=== PATIENT | female | born 1970 | race Caucasian/White ===

== ENCOUNTER 2016-10-28 00:35 | Emergency (ER) | payer SELFPAY ==
[2016-10-28] MEDS ORDERED: HYDROmorphone 1 MG/ML SYRINGE IM STA (03:13)
[2016-10-28] MEDS ORDERED: HYDROmorphone 1 MG/ML SYRINGE ONE (03:14)
== END 2016-10-28 05:25 | disposition home or self-care (01) ==
DX: R10.33 Periumbilical pain (principal); R07.89 Other chest pain; R51 Headache; R73.9 Hyperglycemia, unspecified; K43.9 Ventral hernia without obstruction or gangrene; F17.200 Nicotine dependence, unspecified, uncomplicated
CPT/HCPCS: 36415; 80053; 83036; 83690; 85025; 96372; 99283; 99284; J1170

== ENCOUNTER 2016-11-04 18:12 | Emergency (ER) | payer SELFPAY ==
[2016-11-04] MEDS: SODIUM CHLORIDE 0.9% 2,000 ML IV ONE ×2 (19:05→19:59)
[2016-11-04] MEDS ORDERED: ACETAMINOPHEN 325 MG TABLET PO STA (19:42)
[2016-11-04] MEDS ORDERED: ACETAMINOPHEN 325 MG TABLET PO ONE (19:47)
== END 2016-11-04 21:02 | disposition home or self-care (01) ==
DX: R10.9 Unspecified abdominal pain (principal); R73.9 Hyperglycemia, unspecified; F17.200 Nicotine dependence, unspecified, uncomplicated; Z85.07 Personal history of malignant neoplasm of pancreas
CPT/HCPCS: 36415; 80053; 81001; 82803; 83690; 85025; 93010; 96374; 96375; 99283; 99284; A9270

== ENCOUNTER 2016-11-22 10:10 | Outpatient (CLI) | payer MEDICAID | END 2016-11-22 10:11 | disposition home or self-care (01) | DX: R73.01 Impaired fasting glucose (principal) ==

== ENCOUNTER 2016-12-15 13:46 | Inpatient (IN) | payer MEDICAID ==
[2016-12-15] MEDS ORDERED: SODIUM CHLORIDE 0.9% 1,000 ML IV ONE ×2 (14:37→17:05)
[2016-12-15] MEDS ORDERED: ONDANSETRON 4 MG/2 ML VIAL IVP STA ×2 (14:37→17:05)
[2016-12-15] MEDS ORDERED: HYDROmorphone 1 MG/ML SYRINGE IVP STA ×3 (14:37→18:31)
[2016-12-15] MEDS ORDERED: HYDROmorphone 1 MG/ML SYRINGE ONE ×3 (15:20→18:45)
[2016-12-15] MEDS ORDERED: ONDANSETRON 4 MG/2 ML VIAL ONE ×2 (15:21→17:11)
[2016-12-15] MEDS ORDERED: NICOTINE 7 MG PATCH TOP STA (18:31)
[2016-12-15] MEDS ORDERED: IOPAMIDOL-300 100 ML VIAL IVP ONE (19:47)
[2016-12-15] MEDS ORDERED: TEMAZEPAM 15 MG CAPSULE PO PRN (19:59)
[2016-12-15] MEDS ORDERED: PROCHLORPERAZINE 10 MG/2 ML VIAL IVP PRN (19:59)
[2016-12-15] MEDS ORDERED: oxyCODONE 5 MG TABLET PO PRN (20:04)
[2016-12-15] MEDS ORDERED: HYDROCORTISONE 20 MG PO SCH (21:00)
[2016-12-15] MEDS: HYDROmorphone 1 MG/ML SYRINGE IVP PRN (21:45)
[2016-12-15] MEDS: METHADONE 5 MG TABLET PO SCH (21:45)
[2016-12-15] MEDS: HYDROCORTISONE 10 MG TABLET PO SCH (21:45)
[2016-12-15] MEDS: FAMOTIDINE 20 MG/50 ML 50 ML IV SCH (21:49)
[2016-12-15] MEDS: SODIUM CHLORIDE FLUSH 0.9% 10 ML SYRINGE IVP SCH (22:16)
[2016-12-16] MEDS: SODIUM CHLORIDE 0.9% 1,000 ML IV SCH ×3 (00:29→13:46)
[2016-12-16] MEDS: HYDROmorphone 1 MG/ML SYRINGE IVP PRN (00:29)
[2016-12-16] MEDS: INSULIN REGULAR HUMAN 100 UNIT/1 ML 10 ML MDV SUBQ SCH ×4 (06:23→17:54)
[2016-12-16] MEDS: ACETAMINOPHEN 325 MG TABLET PO PRN ×2 (06:34→14:20)
[2016-12-16] MEDS: MORPHINE 2 MG/ML SYRINGE IVP PRN ×2 (06:34→10:05)
[2016-12-16] MEDS: SODIUM CHLORIDE FLUSH 0.9% 10 ML SYRINGE IVP SCH ×3 (06:40→21:19)
[2016-12-16] MEDS: HYDROCORTISONE 10 MG TABLET PO SCH ×3 (10:02→21:21)
[2016-12-16] MEDS: FAMOTIDINE 20 MG/50 ML 50 ML IV SCH ×2 (10:03→21:14)
[2016-12-16] MEDS: ENOXAPARIN 40 MG/0.4 ML SYRINGE SUBQ SCH (10:03)
[2016-12-16] MEDS: FLUDROCORTISONE 0.1 MG TABLET PO SCH (10:04)
[2016-12-16] MEDS: POLYETHYLENE GLYCOL 3350 17 GM PACKET PO SCH (10:04)
[2016-12-16] MEDS: METHADONE 5 MG TABLET PO SCH ×4 (10:04→21:19)
[2016-12-16] MEDS: HYDROmorphone 2 MG TABLET PO PRN (16:20)
[2016-12-16] MEDS: SODIUM CHLORIDE FLUSH 0.9% 10 ML SYRINGE IVP PRN (21:19)
[2016-12-16] MEDS ORDERED: GLUCAGON 1 MG/ML VIAL SUBQ PRN (22:28)
[2016-12-16] MEDS ORDERED: DEXTROSE 5% 1,000 ML IV PRN (22:28)
[2016-12-16] MEDS ORDERED: DEXTROSE 50% ABBOJECT 25 GM/50 ML SYRINGE IVP PRN (22:28)
[2016-12-16] MEDS ORDERED: DEXTROSE GEL 37.5 GM TUBE PO PRN (22:28)
[2016-12-17] MEDS: HYDROmorphone 2 MG TABLET PO PRN ×2 (00:15→06:36)
[2016-12-17] MEDS: HYDROCORTISONE 10 MG TABLET PO SCH ×2 (06:35→15:29)
[2016-12-17] MEDS: ONDANSETRON 4 MG/2 ML VIAL IVP PRN ×2 (06:36→16:44)
[2016-12-17] MEDS: SODIUM CHLORIDE FLUSH 0.9% 10 ML SYRINGE IVP SCH ×2 (06:36→16:44)
[2016-12-17] MEDS: INSULIN ASPART 300 UNIT/3 ML PEN SUBQ SCH ×2 (08:25→11:53)
[2016-12-17] MEDS: POLYETHYLENE GLYCOL 3350 17 GM PACKET PO SCH (08:29)
[2016-12-17] MEDS: METHADONE 5 MG TABLET PO SCH ×3 (08:30→16:43)
[2016-12-17] MEDS: FLUDROCORTISONE 0.1 MG TABLET PO SCH (08:32)
[2016-12-17] MEDS: FAMOTIDINE 20 MG/50 ML 50 ML IV SCH (08:33)
[2016-12-17] MEDS: ENOXAPARIN 40 MG/0.4 ML SYRINGE SUBQ SCH (08:33)
[2016-12-17] MEDS ORDERED: DOCUSATE SODIUM 250 MG CAPSULE PO SCH (09:00)
[2016-12-17] MEDS: SODIUM CHLORIDE FLUSH 0.9% 10 ML SYRINGE IVP PRN (16:44)
[2016-12-18] MEDS ORDERED: HYDROCORTISONE 10 MG TABLET PO SCH (22:00)
== END 2016-12-17 17:10 | disposition home or self-care (01) | DRG 439 ==
DX: K85.90 Acute pancreatitis without necrosis or infection, unspecified (principal); K86.3 Pseudocyst of pancreas; G90.50 Complex regional pain syndrome I, unspecified; Q85.8 Other phakomatoses, not elsewhere classified; E89.6 Postprocedural adrenocortical (-medullary) hypofunction; K21.9 Gastro-esophageal reflux disease without esophagitis; E11.9 Type 2 diabetes mellitus without complications; D50.9 Iron deficiency anemia, unspecified; I10 Essential (primary) hypertension; F32.9 Major depressive disorder, single episode, unspecified; F41.9 Anxiety disorder, unspecified; Z90.411 Acquired partial absence of pancreas; Z90.49 Acquired absence of other specified parts of digestive tract; G47.33 Obstructive sleep apnea (adult) (pediatric); F17.210 Nicotine dependence, cigarettes, uncomplicated; Z79.891 Long term (current) use of opiate analgesic; Z79.899 Other long term (current) drug therapy; Z85.07 Personal history of malignant neoplasm of pancreas

== ENCOUNTER 2016-12-26 18:03 | Outpatient (CLI) | payer MEDICAID | END 2016-12-26 18:04 | disposition critical access hospital (66) | DX: R11.2 Nausea with vomiting, unspecified (principal); R53.1 Weakness | CPT/HCPCS: A0425; A0427 ==

== ENCOUNTER 2016-12-26 18:31 | Emergency (ER) | payer MEDICAID ==
[2016-12-26] MEDS ORDERED: ONDANSETRON 4 MG/2 ML VIAL ONE (19:09)
[2016-12-26] MEDS ORDERED: SODIUM CHLORIDE 0.9% 2,000 ML IV ONE (19:09)
[2016-12-26] MEDS ORDERED: MORPHINE 2 MG/ML SYRINGE ONE (19:09)
[2016-12-26] MEDS: ONDANSETRON 4 MG/2 ML VIAL IVP STA (19:21)
[2016-12-26] MEDS: SODIUM CHLORIDE 0.9% 1,000 ML IV ONE ×2 (19:21→21:15)
[2016-12-26] MEDS: MORPHINE 2 MG/ML SYRINGE IVP STA (19:22)
[2016-12-26] MEDS: HYDROmorphone 1 MG/ML SYRINGE IVP STA (19:25)
[2016-12-26] MEDS ORDERED: MORPHINE 10 MG/ML VIAL ONE (20:00)
[2016-12-26] MEDS: MORPHINE 10 MG/ML VIAL IVP STA (20:02)
[2016-12-26] MEDS ORDERED: KETOROLAC 60 MG/2 ML VIAL ONE (21:36)
== END 2016-12-26 21:46 | disposition home or self-care (01) ==
DX: R10.84 Generalized abdominal pain (principal); R11.2 Nausea with vomiting, unspecified; E86.0 Dehydration; R73.9 Hyperglycemia, unspecified; R74.8 Abnormal levels of other serum enzymes; F17.200 Nicotine dependence, unspecified, uncomplicated

== ENCOUNTER 2017-06-08 13:25 | Outpatient (CLI) | payer MEDICAID ==
[2017-06-08 19:02] LABS: BASOPHILS % (AUTO) 0.3 %; EOSINOPHILS % (AUTO) 0.4 %; HCT - HEMATOCRIT 36.3 % (37.0-47.0); HGB - HEMOGLOBIN 11.2 g/dL (12.0-16.0); LYMPHOCYTES % (AUTO) 8.4 %; MEAN CORPUSCULAR HEMOGLOBIN 22.5 pg (27.0-31.0); MEAN CORPUSCULAR HGB CONC 30.7 g/dL (32.0-36.0); MEAN PLATELET VOLUME 7.9 fL (7.9-10.8); MONOCYTES # (AUTO) 0.5 10^3/uL (0.0-1.0); MONOCYTES % (AUTO) 4.5 %; NEUTROPHILS # (AUTO) 10.2 10^3/uL (1.5-6.6); NEUTROPHILS % (AUTO) 86.4 %; RED BLOOD COUNT 4.97 10^6/uL (4.20-5.40); RED CELL DISTRIBUTION WIDTH 16.3 % (12.0-15.0); UNCORRECTED WHITE BLOOD COUNT 11.8 x10^3/uL; WHITE BLOOD COUNT 11.8 x10^3/uL (4.8-10.8)
[2017-06-08 19:58] LABS: ALBUMIN/GLOBULIN RATIO 1.1 (1.0-2.2); BILIRUBIN,TOTAL 0.2 mg/dL (0.2-1.0); BUN - BLOOD UREA NITROGEN 22 mg/dL (6-20); CALCIUM 9.1 mg/dL (8.5-10.3); CARBON DIOXIDE - CO2 29 mmol/L (21-32); CHLORIDE 102 mmol/L (101-111); CHOL/HDL RATIO 2.3 (<4.4); CHOLESTEROL 160 mg/dL; CREATININE 0.7 mg/dL (0.4-1.0); GFR - MDRD 90 (>89); GLUCOSE 184 mg/dL (70-100); HDL CHOLESTEROL 71 mg/dL; LDL/HDL RATIO 0.9 (<4.4); POTASSIUM 4.2 mmol/L (3.5-5.0); SODIUM 138 mmol/L (135-145); TOTAL PROTEIN 6.8 g/dL (6.7-8.2); TRIGLYCERIDES 127 mg/dL; VLDL CHOLESTEROL 25 mg/dL
[2017-06-08 20:09] LABS: HEMOGLOBIN A1C 0.63 g/dL
[2017-06-09 12:24] LABS: FERRITIN 6.5 ng/mL (11.0-306.8); IRON 54 ug/dL (28-170); TOTAL IRON BINDING CAPACITY 543 ug/dL (250-450); TRANSFERRIN 388 mg/dL (192-382)
== END 2017-06-08 13:26 | disposition home or self-care (01) ==
LOC: LAB.N 13:25
PROVIDERS: ATTEND Physician Assistant
DX: R10.9 Unspecified abdominal pain (principal); E27.1 Primary adrenocortical insufficiency; D64.9 Anemia, unspecified
CPT/HCPCS: 36415; 80053; 80061; 82043; 82607; 82728; 83036; 83540; 84443; 84466; 85025

== ENCOUNTER 2017-07-13 07:51 | Emergency (ER) | payer MEDICAID ==
[2017-07-13 08:20] LABS: BILIRUBIN,URINE NEGATIVE (NEGATIVE)
[2017-07-13 08:27] LABS: HCG UR QUAL NEGATIVE; UA CHARGE (STRIP ONLY) YES; UR CULTURE IF IND NOT INDICATED
[2017-07-13 08:44] LABS: BASOPHILS # (AUTO) 0.1 10^3/uL (0.0-0.1); BASOPHILS % (AUTO) 0.6 %; EOSINOPHILS # (AUTO) 0.1 10^3/uL (0.0-0.7); EOSINOPHILS % (AUTO) 0.7 %; HCT - HEMATOCRIT 30.1 % (37.0-47.0); HGB - HEMOGLOBIN 9.7 g/dL (12.0-16.0); LYMPHOCYTES # (AUTO) 1.5 10^3/uL (1.5-3.5); LYMPHOCYTES % (AUTO) 14.1 %; MEAN CORPUSCULAR HEMOGLOBIN 23.8 pg (27.0-31.0); MEAN CORPUSCULAR HGB CONC 32.3 g/dL (32.0-36.0); MEAN CORPUSCULAR VOLUME 73.7 fL (81.0-99.0); MEAN PLATELET VOLUME 6.8 fL (7.9-10.8); MONOCYTES # (AUTO) 0.7 10^3/uL (0.0-1.0); MONOCYTES % (AUTO) 6.3 %; NEUTROPHILS # (AUTO) 8.2 10^3/uL (1.5-6.6); NEUTROPHILS % (AUTO) 78.3 %; RED BLOOD COUNT 4.08 10^6/uL (4.20-5.40); RED CELL DISTRIBUTION WIDTH 20.1 % (12.0-15.0); UNCORRECTED WHITE BLOOD COUNT 10.5 x10^3/uL; WHITE BLOOD COUNT 10.5 x10^3/uL (4.8-10.8)
--- NOTE | 2017-07-13 08:50 | ED Physician Documentation ---
PD HPI ABD PAIN - Stated complaint Stated Complaint: LEFT ABD PX - Chief complaint Chief Complaint: Abd Pain - History obtained from History obtained from: Patient - History of Present Illness Timing - onset: How many weeks ago (1) Timing - duration: Weeks (1) Timing - details: Gradual onset, Still present, Waxing and waning Pain level max: 10 Pain level now: 7 Quality: Cramping, Sharp, Pain Location: LUQ, LLQ Improved by: Laying still Worsened by: Eating, Moving, Position, Palpation Associated symptoms: Nausea. 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 She is usually been able to control this pain with her methadone which she takes 20 mg 4 times a day. She has not been able to control the pain this past week and she is become increasingly weak and requires stress doses of hydrocortisone to be able to stand. She has not had vomiting or diarrhea she denies any urinary symptoms she denies any fever or chills. She does have worsening of pain when she eats and she has worsening of pain with coughing or moving or palpating the area. She does have known pancreatic pseudocyst up to 5.2 cm in the left upper quadrant. She was last admitted for similar symptoms in December of this year. She has not followed up at the [facility] as she has lost her medical coverage. She is now gained medical coverage and has started going to the doctor again. Review of Systems Constitutional: reports: Fatigue. denies: Fever, Chills Eyes: denies: Decreased vision Ears: denies: Ear pain Nose: denies: Congestion Throat: denies: Sore throat Cardiac: denies: Chest pain / pressure, Palpitations Respiratory: denies: Dyspnea, Cough GI: reports: Abdominal Pain, Nausea. denies: Vomiting, Constipation, Diarrhea : denies: Dysuria, Frequency Skin: denies: Rash Musculoskeletal: denies: Neck pain, Back pain, Extremity pain PD PAST MEDICAL HISTORY - Past Medical History Cardiovascular: None Respiratory: None Neuro: None Endocrine/Autoimmune: Other GI: Pancreatitis : None HEENT: None, Other Psych: None Musculoskeletal: None Derm: None - Past Surgical History Past Surgical History: Yes General: Liver surgery Ortho: Spine surgery - Present Medications Home Medications: Ambulatory Orders Medication Instructions Recorded Confirmed Fludrocortisone Acetate 0.1 mg PO DAILY 06/02/13 07/13/17 Hydrocortisone [Cortef] 20 mg PO TID 06/02/13 07/13/17 Ascorbic Acid [Vitamin C] 250 mg PO DAILY 11/05/13 07/13/17 Ferrous Fumarate [Iron] 55 mg PO DAILY 11/05/13 07/13/17 Methadone 20 mg PO QID 11/05/13 07/13/17 Multivitamin [Multivitamins] 1 each PO DAILY 11/05/13 07/13/17 Oxycodone HCl 20 mg PO TID PRN 04/18/16 07/13/17 Acetaminophen [Tylenol] 650 mg PO Q4HR PRN #0 tablet 12/17/16 07/13/17 Aspirin 81 mg PO DAILY 07/13/17 07/13/17 Glimepiride 4 mg PO DAILY 07/13/17 07/13/17 Insulin Glargine [Lantus Solostar] 10 units SQ DAILY 07/13/17 07/13/17 Lisinopril 40 mg PO DAILY 07/13/17 07/13/17 Morphine Sulfate 15 mg PO BID PRN #30 tablet 07/13/17 Ondansetron Odt [Zofran] 4 mg TL Q6H PRN #10 tablet 07/13/17 - Allergies Allergies/Adverse Reactions: Allergies Allergy/AdvReac Type Severity Reaction Status Date / Time Sulfa (Sulfonamide Allergy Rash Verified 12/26/16 19:59 Antibiotics) NSAIDS (Non-Steroidal AdvReac abd pain Verified 12/26/16 19:59 Anti-Inflamma - Social History Does the pt smoke?: Yes Smoking Status: Current every day smoker Does the pt drink ETOH?: No Does the pt have substance abuse?: No - Immunizations Immunizations are current?: Yes - POLST Patient has POLST: No PD ED PE NORMAL - Vitals Vital signs reviewed: Yes (hypertensive) - General General: Alert and oriented X 3, No acute distress, Well developed/nourished - HEENT HEENT: Atraumatic, PERRL - Neck Neck: Supple, no meningeal sign - Cardiac Cardiac: RRR, No murmur - Respiratory Respiratory: No respiratory distress, Clear bilaterally - Abdomen Abdomen: Soft, Other (There is mild left upper quadrant and left lateral abdominal pain. She does not have flank tenderness. There is extensive scarring to the abdominal wall from prior surgical procedures. The scars are well healed thin appearing and without specific tenderness. ) - Back Back: No CVA TTP, No spinal TTP - Derm Derm: Normal color, Warm and dry, No rash - Extremities Extremities: No deformity, No edema - Neuro Neuro: No motor deficit, No sensory deficit - Psych Psych: Normal mood, Normal affect Results - Vitals Vitals: Vital Signs - 24 hr 07/13/17 07/13/17 07/13/17 08:00 09:13 09:45 Temperature 36.6 C 37.5 C Heart Rate 88 82 70 Respiratory 16 16 18 Rate Blood Pressure 168/112 H 179/95 H 168/85 H O2 Saturation 100 99 96 07/13/17 07/13/17 07/13/17 11:04 11:51 13:19 Temperature 36.2 C L 36.9 C 37.2 C Heart Rate 67 79 68 Respiratory 12 16 15 Rate Blood Pressure 153/88 H 160/75 H 160/88 H O2 Saturation 98 99 99 Oxygen O2 Source Room air - Labs Labs: Laboratory Tests 07/13/17 07/13/17 07/13/17 08:00 08:39 08:39 WBC 10.5 RBC 4.08 L Hgb 9.7 L Hct 30.1 L MCV 73.7 L MCH 23.8 L MCHC 32.3 RDW 20.1 H Plt Count 399 MPV 6.8 L Neut # 8.2 H Lymph # 1.5 [place] # 0.7 Eos # 0.1 Baso # 0.1 Absolute Nucleated RBC 0.00 Nucleated RBC % 0.0 Manual Slide Review Indicated WBC Morphology NORMAL APPEARANCE Platelet Estimate NORMAL (130-450,000) Platelet Morphology NORMAL APPEARANCE RBC Morph Micro Appear 1+ POLYCHROMASIA Sodium 137 Potassium 4.1 Chloride 99 L Carbon Dioxide 29 Anion Gap 9.0 BUN 15 Creatinine 0.8 Estimated GFR (MDRD) 77 L Glucose 221 H Calcium 8.6 Total Bilirubin 0.4 AST 27 ALT 19 Alkaline Phosphatase 51 Total Protein 6.5 L Albumin 3.6 Globulin 2.9 Albumin/Globulin Ratio 1.2 Lipase 169 H Urine Color YELLOW Urine Clarity CLEAR Urine pH 6.0 Ur Specific [place] 1.015 Urine Protein NEGATIVE Urine Glucose (UA) NEGATIVE Urine Ketones NEGATIVE Urine Occult Blood NEGATIVE Urine Nitrite NEGATIVE Urine Bilirubin NEGATIVE Urine Urobilinogen 0.2 (NORMAL) Ur Leukocyte Esterase NEGATIVE Ur Microscopic Review NOT INDICATED Urine Culture Comments NOT INDICATED Urine HCG, Qual NEGATIVE - Rads (name of study) CT abdomen pelvis with Radiology: Prelim report reviewed (Impression: 1. Increase in size of peripancreatic body cyst masses, uncertain etiology, possibly pseudocyst or cystic neoplasms. 2. Status post presumed modified Whipple and hepaticojejunostomy, suspected pancreaticojejunostomy and gastrojejunostomy. 3. Possible stent coursing through the hepaticojejunostomy 4. small cyst lesion in the pancreatic body is stable. 5. Stomach, small bowel and colon containing right abdominal incisional hernia with a wide neck without obstruction. 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 This is been particularly bad over the past week. Here in the emergency department she is administered morphine intravenously with improvement in her pain and she is quite comfortable with pain control. She is not dehydrated on interrogation of the inferior vena cava. 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 I was able to consult with Dr. Thomas at the [facility] he is the GI oncologist assigned to her case. The patient has not been in for follow-up since 2013 and she missed an appointment in December. That apparently was a day that she was admitted to the hospital here. He will make arrangements to be able to see the patient in their clinic either this Tuesday or next Tuesday. The patient appears comfortable following administration of extra pain medication and I suspect her pain control was lost, and that is how she ended up in the emergency department. She is discharged home with a trial of oral morphine for breakthrough pain. I have encouraged the patient to discontinue working and persue treatment. Departure - Departure Disposition: Home, Self Care Clinical Impression: Pancreatic pseudocyst Abdominal pain Qualifiers: Abdominal location: left upper quadrant Qualified Code(s): R10.12 - Left upper quadrant pain Condition: Stable Instructions: ED Pancreatitis Follow-Up: Luis Fernando Rojo PA-C [Primary Care Provider] - [facility] [Provider Group] Prescriptions: Morphine Sulfate 15 mg PO BID PRN #30 tablet PRN Reason: Pain Ondansetron Odt [Zofran] 4 mg TL Q6H PRN #10 tablet PRN Reason: Nausea / Vomiting Forms: Activity restrictions Discharge Date/Time: 07/13/17 14:40
[2017-07-13] MEDS ORDERED: MORPHINE 10 MG/ML VIAL IVP STA ×2 (08:55→12:20)
[2017-07-13] MEDS ORDERED: ONDANSETRON 4 MG/2 ML VIAL IVP STA (08:55)
[2017-07-13 08:57] LABS: ALBUMIN/GLOBULIN RATIO 1.2 (1.0-2.2); BILIRUBIN,TOTAL 0.4 mg/dL (0.2-1.0); CALCIUM 8.6 mg/dL (8.5-10.3); CREATININE 0.8 mg/dL (0.4-1.0); POTASSIUM 4.1 mmol/L (3.5-5.0); TOTAL PROTEIN 6.5 g/dL (6.7-8.2)
[2017-07-13 09:04] LABS: PLATELET ESTIMATE, MANUAL NORMAL (130-450,000) (NORMAL); PLATELET MORPHOLOGY NORMAL APPEARANCE (NORMAL); WBC MORPHOLOGY (MULTIPLE) NORMAL APPEARANCE (NORMAL)
[2017-07-13] MEDS ORDERED: IOPAMIDOL-300 100 ML VIAL ONE (09:05)
[2017-07-13] MEDS ORDERED: MORPHINE 10 MG/ML VIAL ONE ×2 (09:17→12:29)
[2017-07-13] MEDS ORDERED: ONDANSETRON 4 MG/2 ML VIAL ONE (09:17)
[2017-07-13] MEDS ORDERED: IOPAMIDOL-300 100 ML VIAL IVP ONE (09:32)
--- NOTE | 2017-07-13 10:30 | CT Preliminary Report ---
Exam: CT Abdomen/Pelvis W/ IMPRESSION: 1. Increase in size of peripancreatic body cystic masses, uncertain etiology, possibly pseudocysts or cystic neoplasms 2. Status post presumed modified Whipple with hepaticojejunostomy, suspected pancreaticojejunostomy a nd gastrojejunostomy 3. Possible stent coursing through the hepaticojejunostomy 4. Small cystic lesion in the pancreatic body is stable 5. Stomach, small bowel and colon containing right abdominal incisional hernia with a wide neck witho ut obstruction 6. 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
--- NOTE | 2017-07-13 10:33 | CT Report ---
EXAM: CT ABDOMEN AND PELVIS EXAM DATE: 07/13/2017 09:44 AM. CLINICAL HISTORY: L sided pain. COMPARISONS: CT abdomen and pelvis 12/15/2016. TECHNIQUE: Routine helical CT imaging was performed through the abdomen and pelvis. IV contrast: 100 mL Isovue-370. Enteric contrast: No. Reconstructions: Coronal and sagittal. In accordance with CT protocol optimization, one or more of the following dose reduction techniques w ere utilized for this exam: automated exposure control, adjustment of mA and/or KV based on patient s ize, or use of iterative reconstructive technique. FINDINGS: Lung Bases: Subsegmental atelectasis at the bases. Solid pulmonary nodule in the lateral basilar segm ent left lower lobe, series 3, axial image 13, measures 2 mm, unchanged. Liver: Atrophy of segment 4. Linear radiopaque structure extending through the hepatic hilum is most likely located in the bile ducts extending into the hepaticojejunostomy and into segment 8, unchanged . Gallbladder/Bile Ducts: Cholecystectomy. Hepaticojejunostomy. Spleen: Normal. Pancreas: Suboptimally evaluated. Suspect pancreaticojejunostomy. Mild atrophy. Small cystic lesion i n the pancreatic body, series 3, axial image 32, measures 9 mm, poorly visualized, unchanged. Peripan creatic cystic mass superior to the pancreatic body displaces the lesser curvature of the stomach, se sherlyn 3, axial image 27, measuring 6.0 cm, previously 4.4 cm. Peripancreatic cystic mass seen inferior to the pancreatic body, series 3, axial image 37, is bilobed measuring 9.1 cm, previously 5.4 cm. Pa ncreatic body and tail positioned between these cystic masses. Adrenal Glands: Adrenal glands not seen. Kidneys: Normal. No masses or hydronephrosis. Peritoneal Cavity/Bowel: Gastrojejunostomy. Large amount of gas and stool in the rectum. Large amount of gas and stool throughout the colon. Pelvic Organs: Tampon in the vagina. Possible leiomyoma in the right fundus. Vasculature: Enlarged portal vein. SMA is not well-seen and there appears to be collateral filling vi a the [place] which is enlarged. Bones: No significant abnormality. Other: Large incisional stomach, small bowel and colon containing right abdominal wide neck hernia wi thout obstruction. Multiple surgical clips in the upper abdomen abdominal and pelvic wall scarring. IMPRESSION: 1. Increase in size of peripancreatic body cystic masses, uncertain etiology, possibly pseudocysts or cystic neoplasms 2. Status post presumed modified Whipple with hepaticojejunostomy, suspected pancreaticojejunostomy a nd gastrojejunostomy 3. Possible stent coursing through the hepaticojejunostomy 4. Small cystic lesion in the pancreatic body is stable 5. Stomach, small bowel and colon containing right abdominal incisional hernia with a wide neck witho ut obstruction 6. 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
[2017-07-13 13:20] VITALS: BP 160/88
== END 2017-07-13 14:40 | disposition home or self-care (01) ==
LOC: ED 07:51
DX: K86.3 Pseudocyst of pancreas (principal); R10.12 Left upper quadrant pain; Q85.8 Other phakomatoses, not elsewhere classified; Z79.82 Long term (current) use of aspirin; Z79.4 Long term (current) use of insulin; F17.200 Nicotine dependence, unspecified, uncomplicated
CPT/HCPCS: 36415; 74177; 80053; 81003; 81025; 83690; 85025; 96374; 96375; 96376; 99284; Q9967; 81001; 87086

== ENCOUNTER 2018-06-08 02:01 | Outpatient (CLI) | payer MEDICAID | END 2018-06-08 02:02 | disposition critical access hospital (66) | LOC: EMS 02:01 | PROVIDERS: ATTEND Surgery | DX: R10.9 Unspecified abdominal pain (principal); R11.2 Nausea with vomiting, unspecified | CPT/HCPCS: A0425; A0427 ==

== ENCOUNTER 2018-06-08 02:28 | Observation (INO) | payer MEDICAID ==
[2018-06-08] MEDS ORDERED: HYDROmorphone 1 MG/ML CARPUJECT IVP STA (02:56)
[2018-06-08] MEDS ORDERED: PROMETHAZINE INJ 25 MG in SODIUM CHLORIDE 0.9% 50 ML IV STA (02:56)
[2018-06-08] MEDS ORDERED: SODIUM CHLORIDE 0.9% 1,000 ML IV ONE (02:56)
--- NOTE | 2018-06-08 02:57 | ED Physician Documentation ---
PD HPI ABD PAIN - Stated complaint Stated Complaint: N/V - Chief complaint Chief Complaint: Abd Pain - History obtained from History obtained from: Patient, EMS - History of Present Illness Timing - onset: Chronic Timing - details: Gradual onset, Still present Quality: Cramping, Aching, Sharp Location: All over / everywhere, Epigastric Associated symptoms: Fever, Nausea, Vomiting, Diarrhea Similar symptoms before: Work up / diagnostics, Treatment Recently seen: Not recently seen - Additional information Additional information: Patient is a 47 year old female with a history of metastatic Neuro endocrine tumors who is presenting to the emergency department for abdominal pain, nausea and vomiting. Patient states that her cancer is non operable and there are no medications for it. Patient states that she normally take zofran for nausea but it wasn't working. Patient also reports that her pain medication is not working. Patient has a history of multiple abdominal surgeries but also states that she has been having diarrhea. Review of Systems Constitutional: reports: Chills. 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 : None HEENT: None, Other Psych: None Musculoskeletal: None Derm: None - Past Surgical History Past Surgical History: Yes General: Liver surgery Ortho: Spine surgery - Present Medications Home Medications: Ambulatory Orders Medication Instructions Recorded Confirmed Fludrocortisone Acetate 0.1 mg PO DAILY 06/02/13 07/13/17 Hydrocortisone [Cortef] 20 mg PO TID 06/02/13 07/13/17 Ascorbic Acid [Vitamin C] 250 mg PO DAILY 11/05/13 07/13/17 Ferrous Fumarate [Iron] 55 mg PO DAILY 11/05/13 07/13/17 Methadone 20 mg PO QID 11/05/13 07/13/17 Multivitamin [Multivitamins] 1 each PO DAILY 11/05/13 07/13/17 Oxycodone HCl 20 mg PO TID PRN 04/18/16 07/13/17 Acetaminophen [Tylenol] 650 mg PO Q4HR PRN #0 tablet 03/03/17 09/27/17 Aspirin 81 mg PO DAILY 07/13/17 07/13/17 Glimepiride 4 mg PO DAILY 07/13/17 07/13/17 Insulin Glargine [Lantus Solostar] 10 units SQ DAILY 07/13/17 07/13/17 Lisinopril 40 mg PO DAILY 07/13/17 07/13/17 Morphine Sulfate 15 mg PO BID PRN #30 tablet 07/13/17 Ondansetron Odt [Zofran] 4 mg TL Q6H PRN #10 tablet 07/13/17 - Allergies Allergies/Adverse Reactions: Allergies Allergy/AdvReac Type Severity Reaction Status Date / Time Sulfa (Sulfonamide Allergy Rash Verified 06/08/18 02:38 Antibiotics) NSAIDS (Non-Steroidal AdvReac abd pain Verified 06/08/18 02:38 Anti-Inflamma - Social History Does the pt smoke?: Yes Smoking Status: Current every day smoker Does the pt drink ETOH?: No Does the pt have substance abuse?: No - Immunizations Immunizations are current?: Yes - POLST Patient has POLST: No PD ED PE NORMAL - General General: Alert and oriented X 3 - HEENT HEENT: Atraumatic - Cardiac Cardiac: RRR - Respiratory Respiratory: No respiratory distress - Derm Derm: Normal color - Extremities Extremities: No deformity - Neuro Neuro: Alert and oriented X 3, No motor deficit, Normal speech Eye Opening: Spontaneous PD ED PE EXPANDED - General General: Alert, In Pain - HEENT HEENT: Dry mucous membranes - Abdomen Abdomen: Tender to palpation, Guarding, Generalized/diffuse. No: Rebound Results - Vitals Vitals: Vital Signs - 24 hr 06/08/18 02:33 Temperature 36.6 C Heart Rate 62 Respiratory 12 Rate Blood Pressure 188/97 H O2 Saturation 98 Oxygen O2 Source Room air - Labs Labs: Laboratory Tests 06/08/18 06/08/18 06/08/18 03:10 03:10 03:10 WBC 11.7 H RBC 5.66 H Hgb 14.5 Hct 44.3 MCV 78.3 L MCH 25.7 L MCHC 32.8 RDW 16.7 H Plt Count 387 MPV 7.4 L Neut # (Auto) 9.3 H Lymph # (Auto) 1.4 L [place] # (Auto) 0.8 Eos # (Auto) 0.0 Baso # (Auto) 0.1 Absolute Nucleated RBC 0.02 Nucleated RBC % 0.2 Sodium 138 Potassium 2.9 L Chloride 99 L Carbon Dioxide 29 Anion Gap 10.0 BUN 10 Creatinine 0.5 Estimated GFR (MDRD) 132 Glucose 118 H Calcium 8.7 Magnesium 1.9 Total Bilirubin 0.9 AST 16 ALT 17 Alkaline Phosphatase 76 Total Protein 6.8 Albumin 3.8 Globulin 3.0 Albumin/Globulin Ratio 1.3 Lipase 61 H - Rads (name of study) ct abd pelvis Radiology: Final report received, See rad report (multiple findings. please see rad report) PD MEDICAL DECISION MAKING - ED course Complexity details: reviewed old records, reviewed results, re-evaluated patient , considered differential, d/w patient ED course: Patient was seen and examined at bedside. Iv access was gained and labs were drawn. Patient was treated with ns bolus, morphine and phenagren. Imaging was ordered. Patient's vomiting had originally stopped. when patient returned from imaging results were reviewed. Patient was found to have worsening disease. Patient stated that she still did not want any type of surgery and just wanted her pain controlled as well as the nausea. patient's potassium was replaced. Case was discussed with the hospitalist who agreed to observation. - Sepsis Event Vital Signs: Vital Signs - 24 hr 06/08/18 02:33 Temperature 36.6 C Heart Rate 62 Respiratory 12 Rate Blood Pressure 188/97 H O2 Saturation 98 Oxygen O2 Source Room air Departure - Departure Disposition: ED Place in Observation Clinical Impression: Vomiting, Dehydration, Pancreatic pseudocyst, Hypokalemia
[2018-06-08] MEDS ORDERED: IOPAMIDOL-300 100 ML VIAL ONE (03:13)
[2018-06-08] MEDS ORDERED: MORPHINE 10 MG/ML VIAL IVP STA (03:21)
[2018-06-08 03:27] LABS: BASOPHILS # (AUTO) 0.1 10^3/uL (0.0-0.1); BASOPHILS % (AUTO) 0.6 %; EOSINOPHILS % (AUTO) 0.4 %; HGB - HEMOGLOBIN 14.5 g/dL (12.0-16.0); LYMPHOCYTES # (AUTO) 1.4 10^3/uL (1.5-3.5); MEAN CORPUSCULAR HEMOGLOBIN 25.7 pg (27.0-31.0); MEAN CORPUSCULAR HGB CONC 32.8 g/dL (32.0-36.0); MEAN CORPUSCULAR VOLUME 78.3 fL (81.0-99.0); MEAN PLATELET VOLUME 7.4 fL (7.9-10.8); MONOCYTES # (AUTO) 0.8 10^3/uL (0.0-1.0); MONOCYTES % (AUTO) 7.2 %; NEUTROPHILS # (AUTO) 9.3 10^3/uL (1.5-6.6); NEUTROPHILS % (AUTO) 79.8 %; PLT - PLATELET COUNT 387 10^3/uL (130-450); RED BLOOD COUNT 5.66 10^6/uL (4.20-5.40); RED CELL DISTRIBUTION WIDTH 16.7 % (12.0-15.0); WHITE BLOOD COUNT 11.7 x10^3/uL (4.8-10.8)
[2018-06-08 03:41] LABS: ALBUMIN 3.8 g/dL (3.2-5.5); ALBUMIN/GLOBULIN RATIO 1.3 (1.0-2.2); BILIRUBIN,TOTAL 0.9 mg/dL (0.2-1.0); CALCIUM 8.7 mg/dL (8.5-10.3); CREATININE 0.5 mg/dL (0.4-1.0); TOTAL PROTEIN 6.8 g/dL (6.7-8.2)
[2018-06-08] MEDS ORDERED: POTASSIUM CHLOR 10 MEQ/100 ML 10 MEQ/100 ML BAG IV ONE (04:01)
[2018-06-08] MEDS ORDERED: IOPAMIDOL-300 100 ML VIAL IVP ONE (04:18)
--- NOTE | 2018-06-08 04:47 | CT Report ---
Procedure Date: 06/08/2018 Accession Number: [id number] / [id number] Procedure: CT - Abdomen/Pelvis W/ CPT Code: FULL RESULT: EXAM: CT ABDOMEN AND PELVIS EXAM DATE: 06/08/2018 04:20 AM. CLINICAL HISTORY: Abdominal pain, vomiting, history of cancer and multiple procedures. COMPARISONS: ABDOMEN/PELVIS W/ 07/13/2017 9:25 AM, ABDOMEN/PELVIS W/ 12/15/2016, ABDOMEN/PELVIS W/WO 09/15/2013 11:44 AM. TECHNIQUE: Routine helical CT imaging was performed through the abdomen and pelvis. IV contrast: Yes. Enteric contrast: No. Reconstructions: Coronal and sagittal. In accordance with CT protocol optimization, one or more of the following dose reduction techniques were utilized for this exam: automated exposure control, adjustment of mA and/or KV based on patient size, or use of iterative reconstructive technique. FINDINGS: Lung Bases: Unremarkable. Liver: Mildly fatty. No suspicious masses. Pancreaticobiliary System: Post-partial pancreatectomy. Suspect previous choledochojejunal and pancreaticojejunal anastomoses. Minimal stranding adjacent to the pancreatic remnant. The pancreas appears diffusely nodular with hyperenhancing nodules measuring up to 29 x 24 mm in cross-section on image 28 of the axial sequence in the region of the proximal pancreatic body. Several additional smaller nodules in the pancreatic body and tail. Chronic benign-appearing left abdominal cysts have slightly enlarged compared to the prior study, likely pseudocysts. These measure up to approximately 10 x 8 x 8 cm currently, 9 x 7 x 7 cm previously. Additional smaller pseudocysts adjacent to the gastric body currently measures 7 x 5 x 5 cm, previously 6 x 5 x 5 cm. No intrahepatic biliary ductal dilatation seen. Spleen: Unremarkable. Adrenal Glands: Unremarkable. Kidneys: Unremarkable. No suspicious masses or hydronephrosis. Peritoneal Cavity/Bowel: No bowel obstruction or inflammatory process seen. Moderate stool burden. Large wide mouth anterior abdominal hernia containing numerous segments of large and small bowel appear stable and without complication. Pelvic Organs: Numerous uterine fibroids, including a intracavitary mass, measuring grossly 60 x 28 x 25 mm which may be an endometrial polyp or fibroid. No suspicious adnexal masses. Urinary bladder appears unremarkable. Vasculature: No definite acute abnormality with stable appearance. 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 No portal venous thrombosis seen. 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 Bones: No significant abnormality. Other: Intrathecal pump noted. IMPRESSION: 1. Questionable mild acute pancreatitis. Numerous hyperenhancing nodules within the pancreatic parenchyma measuring up to 28 mm. Unclear if this is neoplastic or inflammatory in nature. Consider endoscopic ultrasound and biopsy. 2. Interval enlargement of the left abdominal probable pseudocysts measuring up to 10 cm. Additional 7 mm pseudocyst abuts the gastric body and may be amenable to transgastric drainage if clinically indicated. 3. Moderate stool burden. 4. Fibroid uterus. Additional 6 cm intracavitary mass could be a fibroid or endometrial polyp. 5. Previous extensive upper abdominal surgeries, including whipple procedure. 6. Large anterior abdominal hernia without apparent complication. 7. Fatty liver. [facility]
[2018-06-08] MEDS ORDERED: PROCHLORPERAZINE 10 MG/2 ML VIAL IVP PRN (05:40)
[2018-06-08] MEDS ORDERED: TEMAZEPAM 15 MG CAPSULE PO PRN (05:40)
[2018-06-08] MEDS ORDERED: ACETAMINOPHEN 325 MG TABLET PO PRN (05:40)
[2018-06-08] MEDS ORDERED: SODIUM CHLORIDE FLUSH 0.9% 10 ML SYRINGE IVP PRN (05:40)
[2018-06-08] MEDS ORDERED: ONDANSETRON 4 MG/2 ML VIAL IVP PRN (05:40)
[2018-06-08] MEDS ORDERED: POTASSIUM CHLOR 10 MEQ/100 ML 10 MEQ/100 ML BAG IV SCH (05:43)
[2018-06-08] MEDS ORDERED: POTASSIUM CHLORIDE 20 MEQ TABLET PO STA (05:43)
[2018-06-08] MEDS ORDERED: HYDROmorphone PCA 20MG/100ML IV PRN (05:44)
[2018-06-08] MEDS: INSULIN ASPART 300 UNIT/3 ML PEN SUBQ SCH ×4 (07:59→21:26)
[2018-06-08] MEDS ORDERED: POTASSIUM CHLORIDE 20 MEQ TABLET PO ONE (08:00)
[2018-06-08] MEDS ORDERED: hydrALAZINE INJ 20 MG/ML VIAL IVP PRN (08:15)
[2018-06-08] MEDS: POTASSIUM CHLOR 10 MEQ/100 ML 10 MEQ/100 ML BAG IV SCH ×4 (08:30→13:41)
[2018-06-08] MEDS: MAGNESIUM HYDROXIDE 2,400 MG/30 ML UDC PO SCH (08:39)
[2018-06-08] MEDS: LISINOPRIL 20 MG TABLET PO SCH (08:39)
[2018-06-08] MEDS ORDERED: SODIUM CHLORIDE 0.9% 1,000 ML IV SCH (09:00)
[2018-06-08] MEDS: POLYETHYLENE GLYCOL 3350 17 GM PACKET PO SCH (10:18)
[2018-06-08] MEDS: SODIUM CHLORIDE FLUSH 0.9% 10 ML SYRINGE IVP SCH ×2 (10:18→16:54)
--- NOTE | 2018-06-08 10:27 | HISTORY & PHYSICAL EXAMINATION ---
DATE OF SERVICE: 06/08/2018 Physician: Sanjuana Rocha MD CHIEF COMPLAINT: Intractable abdominal pain. 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 on June 07. When I interviewed this patient, she kept repeating that her pain was unbearable and she was a poor historian. Other than this, it was difficult to extract much information from her. In any case, as much as I could gather, she also had nausea and vomited a couple of times. She denied fever. She had regular bowel movements, did not notice any change. The abdominal pain was located periumbilically and radiated to the back. It was sharp, constant and unbearable. Patient has chronic pain. She is opiate dependent. She has pancreatic neuroendocrine tumors and tumors at other site as well and she has episodes when her pain gets out of control. She told me that this pain she experiences tonight is not different than what she had in the past. Further interviewing this patient, also per the ER physician's report, the patient gets her outpatient care at the [facility]. She is not a candidate for surgeries, invasive intervention or chemotherapy. The patient confirmed that she would not wish to transfer to the [facility] and she only seeks pain control in our hospital. She understands that we cannot provide specialty consultation and she is not interested in such. She reports that she receives octreotide injections once a month, but no other therapy currently. Upon presentation to the ER, patient was hemodynamically stable and afebrile. Her blood pressure was elevated at 188/97, and this was in the setting of pain. Laboratory showed potassium of 2.9, blood glucose 118, otherwise unremarkable. White blood cell count was slightly elevated at 11.7. Lipase was 61. Liver function tests were unremarkable. CT scan of the abdomen showed multiple chronic abnormalities with some slight changes, but nothing acute to cause the patient's unbearable pain. In particular, there was mild acute pancreatitis, numerous hyperenhancing nodules within the pancreas. There was interval enlargement of left abdominal probable pseudocyst and other pseudocysts in the gastric body as well. There was moderate stool burden, fibroid uterus, signs of previous extensive upper abdominal surgeries and there was a large anterior abdominal hernia without complication. Fatty liver was also described. Of note, the radiologist mentioned that transgastric drainage of pseudocysts could be considered; however , when procedures were discussed with patient, she was not interested to pursue. PAST MEDICAL HISTORY 1. Insulin-dependent diabetes. 2. 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 Patient underwent Whipple procedure and bilateral adrenalectomies as well. She is not a candidate for chemotherapy or additional surgeries. She receives octreotide injection once a month. 3. Adrenal insufficiency status post adrenalectomies. 4. Reflex sympathetic dystrophy/chronic pain/opiate dependence. 5. Anxiety/depression. 6. Hypertension. 7. Obstructive sleep apnea, history of CPAP use. 8. Gastroesophageal reflux. 9. Status post cholecystectomy. 10. Status post appendectomy. OUTPATIENT MEDICATIONS: Not yet reconciled. REVIEW OF SYSTEMS: Please see pertinent positives listed above at history of present illness. Patient did not report additional complaints on the 12-point review. CODE STATUS: FULL CODE. SOCIAL HISTORY: Patient smokes cigarettes. FAMILY HISTORY: Patient is adopted. PHYSICAL EXAMINATION VITAL SIGNS: Temperature 36.6 Celsius, heart rate in the 60s, blood pressure 180/97, respiratory rate 12, oxygen saturation 98% on room air. GENERAL: Patient is a well-developed, chronically ill-appearing female who constantly complains of pain. ABDOMEN: Not much bowel tone. Diffuse tenderness with voluntary guarding. No rebound. Large midline abdominal wall hernia without sign of incarceration. CARDIOVASCULAR: S1, S2. Regular. No pathologic murmur. RESPIRATORY: No increased work of breathing. No wheezes. No crackles. LYMPHATIC: No lymphedema. MUSCULOSKELETAL: Unremarkable. NEUROLOGIC: Alert, oriented, nonfocal. PSYCHIATRIC: Anxious, but cooperative. SKIN: No rash. No skin nodules. ASSESSMENT AND PLAN/ACTIVE ISSUES/DIAGNOSES 1. Hypokalemia with potassium of 2.9. 2. Uncontrolled pain with complicated medical background and with history of opiate dependence. CT scan did not show acute abnormality to address, except worsening of the patient's chronic condition. Patient would not want to seek drainage of pseudocyst or any intervention at this time. She is clearly interested in pain control. She told that to the ER physician and she confirmed it when I interviewed her. 3. Insulin-dependent diabetes with good blood glucose control. 4. Uncontrolled hypertension with history of hypertension plus in the setting of uncontrolled pain /could be situational. 5. Adrenal insufficiency. We will need to continue replacement steroids. PLAN AND ORDERS 1. Patient is getting admitted under observation. For pain control, I will start CHROME PLATER pump. I do not see much other way to get patient's pain under control. 2. Awaiting medication reconciliation and outpatient medications should be continued unchanged. 3. Will continue steroids, including hydrocortisone and fludrocortisone when medications are reconciled. For now, the patient appears with good blood pressure and stable situation. There is no sign of adrenal crisis. 4. Hypokalemia. We will replace potassium. Replacement already started in the ER. 5. Regarding diabetes, we will start insulin sliding scale. 6. I expect patient's symptoms to get under control within 48 hours. If further complication develops, then transfer to [facility] should be considered. Notably, that was offered to the patient, but she declined. 7. Deep venous thrombosis prophylaxis with Venodyne boots. If remains hospitalized for more than 24 hours, pharmacologic prophylaxis could be considered. For now, we will encourage patient to ambulate as she tolerates. 8. Clear liquid diet. We will advance as tolerated. 9. FULL CODE. Time spent with the care of this patient was 60 minutes. ATTESTATION: I certify that the reasonable expectation for this patient is to get her symptoms under control and discharge within 48 hours. Therefore, she is getting admitted under observation. TD: 06/08/2018 06:30 NORRIS
[2018-06-08] MEDS: amLODIPine 5 MG TABLET PO SCH (11:46)
[2018-06-08] MEDS: ASCORBIC ACID CHEW 500 MG TABLET PO SCH (11:46)
[2018-06-08] MEDS: ASPIRIN CHEW 81 MG TABLET PO SCH (11:46)
[2018-06-08] MEDS: GLIMEPIRIDE 2 MG TABLET PO SCH (11:46)
--- NOTE | 2018-06-08 13:34 | PROVIDER PROGRESS NOTE ---
Subjective - Prog Note Date Prog Note Date: 06/08/18 - Subjective Pt reports feeling: Improved Subjective: pt state her pain is good controlled after PRIMER CHARGER starts. Pt denies headache, fever , cough, chill, CP, SOB. Current Medications - Current Medications Current Medications: Active Medications Acetaminophen (Tylenol) 650 mg PO Q4HR PRN PRN Reason: Pain 1 to 4 Amlodipine Besylate (Norvasc) 10 mg PO DAILY [facility] Last Admin: 06/08/18 11:46 Dose: 10 mg Ascorbic Acid (Vitamin C) 250 mg PO DAILY [facility] Last Admin: 06/08/18 11:46 Dose: 250 mg Aspirin ([facility] Timothy Aspirin) 81 mg PO DAILY [facility] Last Admin: 06/08/18 11:46 Dose: 81 mg Glimepiride (Amaryl) 4 mg PO DAILYWM [facility] Last Admin: 06/08/18 11:46 Dose: 4 mg Hydralazine HCl (Apresoline Inj) 10 mg IVP Q6H PRN PRN Reason: Hypertensive Emergency Hydromorphone HCl (Dilaudid Honing Machine Operator Semiautomatic 20mg/100ml) 0 mg IV PRN PRN; Protocol PRN Reason: Abdominal Pain Last Admin: 06/08/18 10:01 Dose: 20 mg Sodium Chloride (Normal Saline 0.9%) 1,000 mls @ 83.333 mls/hr IV .Q12H [facility] Stop: 06/09/18 08:59 Last Admin: 06/08/18 08:30 Dose: 83.333 mls/hr Insulin Aspart (Novolog) 1 - 5 unit SUBQ 0800,1200,1700,2100 [facility] PRN Reason: Protocol Last Admin: 06/08/18 12:12 Dose: Not Given Lisinopril (Zestril) 40 mg PO DAILY [facility] Last Admin: 06/08/18 08:39 Dose: 40 mg Magnesium Hydroxide (Milk Of Magnesia) 2,400 mg PO DAILY [facility] Last Admin: 06/08/18 08:39 Dose: 2,400 mg Non-Formulary Medication (Hydrocortisone [Cortef]) 20 mg PO BID [facility] Ondansetron HCl (Zofran Inj) 4 mg IVP Q6HR PRN PRN Reason: Nausea / Vomiting Last Admin: 06/08/18 07:03 Dose: 4 mg Polyethylene Glycol (Miralax) 17 gm PO DAILY [facility] Last Admin: 06/08/18 10:18 Dose: Not Given Prochlorperazine Edisylate (Compazine Inj) 10 mg IVP Q6HR PRN PRN Reason: Nausea / Vomiting Last Admin: 06/08/18 10:24 Dose: 10 mg Sodium Chloride (Normal Saline Flush 0.9%) 10 ml IVP PRN PRN PRN Reason: NEEDED PER PROVIDER ORDERS Last Admin: 06/08/18 07:03 Dose: 10 ml Sodium Chloride (Normal Saline Flush 0.9%) 10 ml IVP 0100,0900,1700 [facility] Last Admin: 06/08/18 10:18 Dose: Not Given Temazepam (Restoril) 15 mg PO QPM PRN PRN Reason: Insomnia Fludrocortisone Acetate 0.1 mg PO DAILY 06/02/13 Hydrocortisone [Cortef] 20 mg PO BID 06/02/13 Ascorbic Acid [Vitamin C] 250 mg PO DAILY 11/05/13 Ferrous Fumarate [Iron] 55 mg PO DAILY 11/05/13 Methadone 20 mg PO QID 11/05/13 Multivitamin [Multivitamins] 1 each PO DAILY 11/05/13 Oxycodone HCl 20 mg PO TID PRN 04/18/16 Aspirin 81 mg PO DAILY 07/13/17 Glimepiride 4 mg PO DAILY 07/13/17 Insulin Glargine [Lantus Solostar] 10 units SQ DAILY 07/13/17 Lisinopril 40 mg PO DAILY 07/13/17 Amlodipine Besylate [Amlodipine Besylate] 10 mg PO DAILY 06/08/18 Objective - Vital Signs/Intake & Output Reviewed Vital Signs: Yes Vital Signs: Vital Signs x48h Temp Pulse Pulse Resp BP BP Pulse Ox 06/08/18 10:00 14 06/08/18 08:00 36.9 C 66 17 178/87 H 100 06/08/18 06:56 36.5 C 66 18 202/110 H 100 06/08/18 06:37 36.6 C 90 20 189/101 H 100 Intake & Output: Intake & Output 06/05/18 06/06/18 06/07/18 06/08/18 23:59 23:59 23:59 23:59 Intake Total 300 Output Total 600 Balance -300 - Objective General Appearance: positive: No acute distress, Alert. negative: Lethargic Eyes Bilateral: positive: Normal inspection, PERRL, No lid inflammation, Conjunctivae nml ENT: positive: ENT inspection nml, Pharynx nml, No signs of dehydration. negative: Purulent nasal drainage, Pharyngeal erythema, Oral lesions Neck: positive: Nml inspection, Thyroid nml, No JVD, Trachea midline. negative : Thyromegaly, Lymphadenopathy (R), Lymphadenopathy (L), Stiff neck, Swelling/ bruising, Tracheal deviation Respiratory: positive: Chest non-tender, No respiratory distress, Breath sounds nml. negative: Wheezes, Rales, Rhonchi Cardiovascular: positive: Regular rate & rhythm, No murmur, No gallop. negative : Irregularly irregular, Extrasystoles, Tachycardia, Bradycardia, JVD present, Systolic murmur, Diastolic murmur Peripheral Pulses: 2+ Radial (R), 2+ Radial (L), 2+ Dorsalis pedis (R), 2+ Dorsalis pedis (L) Abdomen: positive: No organomegaly, Nml bowel sounds, No distention, Tenderness. negative: Guarding, Rebound Back: positive: Nml inspection. negative: CVA tenderness (R), CVA tenderness (L ) Skin: positive: Color nml, No rash, Warm, Dry. negative: Cyanosis, Diaphoresis , Pallor Extremities: positive: Non-tender, Full ROM, Nml appearance. negative: Calf tenderness, Joint swelling, Michael's sign/cords Neurologic/Psychiatric: positive: Oriented x3, Motor nml, Sensation nml, Mood/ affect nml. negative: Weakness, Sensory loss, Facial droop, Slurred/abnml speech, Depressed mood/affect - Lab Results Fish Bones: 06/08/18 03:10 06/08/18 03:10 Other Labs: Lab Results x24hrs 06/08/18 06/08/18 Range/Units 11:29 07:56 POC Whole Bld Glucose 88 102 H (70 - 100) mg/dL ABX Reporting Has patient been on IV antibiotics over the past 48 hours?: No Assessment/Plan - Problem List (1) Abdominal pain Impression: pt has hx of Von hippel-Lindau syndrome, diffused tumors pattern in abdomen. not candidate for surgery or chemotherapy PRIMER CHARGER pump with hydromorhine to control pt followup out-pt oncologist follow up pt's pain management clinic (2) Hypokalemia Impression: K is 2.9, replacement of potassium, recheck potassium (3) Von Hippel-Lindau syndrome Impression: unfortunately this is genetic disease, follow up her oncologist as out-pt, continue pain control (4) Non-insulin dependent type 2 diabetes mellitus Impression: slide scale check A1C ACHS, hypoglycemia protocol (5) Hypertension, uncontrolled Impression: continue pt's home meds add hydralazine as PRN pain control vital monitor (6) Adrenal insufficiency Impression: pt's adrenal was removed resume hydrocortisone, will continue fluderocortisone as soon as pharmacy reconcile. vital monitor pt, monitor cortisol crisis. (7) Pancreatitis Impression: pt present abdominal pain, slight elevate Lipase, CT of abdomen reveals questionable mild acute pancreatitis pain control IVF of NS continue check Lipase level clear diet
[2018-06-08] MEDS: SODIUM CHLORIDE 0.9% 1,000 ML IV SCH ×2 (13:50→16:56)
[2018-06-08] MEDS ORDERED: SODIUM CHLORIDE 0.9% 500 ML IV ONE ×2 (15:56→18:30)
[2018-06-08] MEDS ORDERED: methylPREDNISolone SUCCINATE 40 MG/ML VIAL IVP ONE (16:10)
[2018-06-08] MEDS: FLUDROCORTISONE 0.1 MG TABLET PO SCH (17:29)
[2018-06-08] MEDS: HYDROCORTISONE 10 MG TABLET PO SCH (21:27)
[2018-06-09] MEDS: SODIUM CHLORIDE FLUSH 0.9% 10 ML SYRINGE IVP SCH ×3 (04:43→17:24)
[2018-06-09 05:29] LABS: BASOPHILS % (AUTO) 0.3 %; LYMPHOCYTES # (AUTO) 0.6 10^3/uL (1.5-3.5); LYMPHOCYTES % (AUTO) 5.8 %; MEAN CORPUSCULAR HEMOGLOBIN 26.2 pg (27.0-31.0); MEAN CORPUSCULAR HGB CONC 33.1 g/dL (32.0-36.0); MEAN CORPUSCULAR VOLUME 79.1 fL (81.0-99.0); MEAN PLATELET VOLUME 7.3 fL (7.9-10.8); MONOCYTES # (AUTO) 0.5 10^3/uL (0.0-1.0); NEUTROPHILS # (AUTO) 9.5 10^3/uL (1.5-6.6); NEUTROPHILS % (AUTO) 88.9 %; PLT - PLATELET COUNT 340 10^3/uL (130-450); RED BLOOD COUNT 4.97 10^6/uL (4.20-5.40); RED CELL DISTRIBUTION WIDTH 16.2 % (12.0-15.0); WHITE BLOOD COUNT 10.6 x10^3/uL (4.8-10.8)
[2018-06-09 05:35] LABS: CALCIUM 8.1 mg/dL (8.5-10.3); CREATININE 0.6 mg/dL (0.4-1.0)
[2018-06-09 06:02] LABS: HB2 TOTAL 13.8 g/dL; HEMOGLOBIN A1C 0.72 g/dL; HEMOGLOBIN A1C % 6.9 % (4.6-6.2)
[2018-06-09] MEDS ORDERED: ONDANSETRON ODT 4 MG TABLET TL PRN (07:58)
[2018-06-09] MEDS: GLIMEPIRIDE 2 MG TABLET PO SCH (08:49)
[2018-06-09] MEDS: INSULIN ASPART 300 UNIT/3 ML PEN SUBQ SCH ×4 (08:49→21:10)
[2018-06-09] MEDS: ASCORBIC ACID CHEW 500 MG TABLET PO SCH (08:50)
[2018-06-09] MEDS: LISINOPRIL 20 MG TABLET PO SCH (08:50)
[2018-06-09] MEDS: MULTIVITAMIN TABLET PO SCH (08:50)
[2018-06-09] MEDS: amLODIPine 5 MG TABLET PO SCH (08:50)
[2018-06-09] MEDS: HYDROCORTISONE 10 MG TABLET PO SCH ×2 (08:50→21:09)
[2018-06-09] MEDS: FLUDROCORTISONE 0.1 MG TABLET PO SCH (08:50)
[2018-06-09] MEDS: ASPIRIN CHEW 81 MG TABLET PO SCH (08:50)
[2018-06-09] MEDS: POLYETHYLENE GLYCOL 3350 17 GM PACKET PO SCH (08:50)
[2018-06-09] MEDS: MAGNESIUM HYDROXIDE 2,400 MG/30 ML UDC PO SCH (08:50)
[2018-06-09] MEDS: METHADONE 5 MG TABLET PO SCH ×4 (08:54→21:09)
--- NOTE | 2018-06-09 17:07 | PROVIDER PROGRESS NOTE ---
Subjective - Prog Note Date Prog Note Date: 06/09/18 Prog Note Time: 12:00 - Subjective Pt reports feeling: Improved Subjective: Meredith questioned test results from the time of admission, as she believes the ED doctor spoke of some "new findings". She denies any new symptoms such as chest pain, shortness of breath, vomiting, nausea, or a new cough. She claims to be resting well, without periods of over-sedation. She remains on the LANDING WORKER pain pump, and claims to have good pain relief. Current Medications - Current Medications Current Medications: Active Medications Acetaminophen (Tylenol) 650 mg PO Q4HR PRN PRN Reason: Pain 1 to 4 Amlodipine Besylate (Norvasc) 10 mg PO DAILY [facility] Last Admin: 06/09/18 08:50 Dose: 10 mg Ascorbic Acid (Vitamin C) 250 mg PO DAILY [facility] Last Admin: 06/09/18 08:50 Dose: 250 mg Aspirin ([facility] Timothy Aspirin) 81 mg PO DAILY [facility] Last Admin: 06/09/18 08:50 Dose: 81 mg Fludrocortisone Acetate (Florinef) 0.1 mg PO DAILY [facility] Last Admin: 06/09/18 08:50 Dose: 0.1 mg Glimepiride (Amaryl) 4 mg PO DAILYWM [facility] Last Admin: 06/09/18 08:49 Dose: 4 mg Hydralazine HCl (Apresoline Inj) 10 mg IVP Q6H PRN PRN Reason: Hypertensive Emergency Hydrocortisone (Cortef) 20 mg PO BID [facility] Last Admin: 06/09/18 08:50 Dose: 20 mg Hydromorphone HCl (Dilaudid Exhibit Cleaner 20mg/100ml) 0 mg IV PRN PRN; Protocol PRN Reason: Abdominal Pain Last Admin: 06/08/18 10:01 Dose: 20 mg Insulin Aspart (Novolog) 1 - 5 unit SUBQ 0800,1200,1700,2100 [facility] PRN Reason: Protocol Last Admin: 06/09/18 12:19 Dose: 3 unit Lisinopril (Zestril) 40 mg PO DAILY [facility] Last Admin: 06/09/18 08:50 Dose: 40 mg Magnesium Hydroxide (Milk Of Magnesia) 2,400 mg PO DAILY [facility] Last Admin: 06/09/18 08:50 Dose: 2,400 mg Methadone HCl () 20 mg PO QID [facility] Multivitamins (Theragran) 1 tab PO DAILYWM [facility] Last Admin: 06/09/18 08:50 Dose: 1 tab Ondansetron HCl (Zofran Inj) 4 mg IVP Q6HR PRN PRN Reason: Nausea / Vomiting Last Admin: 06/08/18 07:03 Dose: 4 mg Ondansetron HCl (Zofran Odt) 4 mg TL Q6H PRN PRN Reason: Nausea / Vomiting Polyethylene Glycol (Miralax) 17 gm PO DAILY [facility] Last Admin: 06/09/18 08:50 Dose: Not Given Prochlorperazine Edisylate (Compazine Inj) 10 mg IVP Q6HR PRN PRN Reason: Nausea / Vomiting Last Admin: 06/08/18 10:24 Dose: 10 mg Sodium Chloride (Normal Saline Flush 0.9%) 10 ml IVP PRN PRN PRN Reason: NEEDED PER PROVIDER ORDERS Last Admin: 06/08/18 07:03 Dose: 10 ml Sodium Chloride (Normal Saline Flush 0.9%) 10 ml IVP 0100,0900,1700 [facility] Last Admin: 06/09/18 08:50 Dose: Not Given Temazepam (Restoril) 15 mg PO QPM PRN PRN Reason: Insomnia Fludrocortisone Acetate 0.1 mg PO DAILY 06/02/13 Hydrocortisone [Cortef] 20 mg PO BID 06/02/13 Ascorbic Acid [Vitamin C] 250 mg PO DAILY 11/05/13 Ferrous Fumarate [Iron] 55 mg PO DAILY 11/05/13 Multivitamin [Multivitamins] 1 each PO DAILY 11/05/13 Aspirin 81 mg PO DAILY 07/13/17 Glimepiride 4 mg PO DAILY 07/13/17 Insulin Glargine [Lantus Solostar] 12 units SQ DAILY 07/13/17 Lisinopril 40 mg PO DAILY 07/13/17 Amlodipine Besylate [Amlodipine Besylate] 10 mg PO DAILY 06/08/18 Methadone HCl [Methadone HCl] 20 mg PO QID 06/08/18 Oxycodone HCl [Oxycodone HCl] 10 mg PO Q4H PRN 06/08/18 Objective - Vital Signs/Intake & Output Reviewed Vital Signs: Yes Vital Signs: Vital Signs x48h Temp Pulse Pulse Resp BP Pulse Ox 06/09/18 15:44 37.0 C 57 L 12 163/75 H 96 06/09/18 13:05 36.8 C 60 20 154/66 H 98 06/09/18 10:00 16 Intake & Output: Intake & Output 06/06/18 06/07/18 06/08/18 06/09/18 23:59 23:59 23:59 23:59 Intake Total 3331.667 1355 Output Total 1999 Balance 0044.648 0889 - Objective General Appearance: positive: No acute distress, Alert Eyes Bilateral: positive: Normal inspection, PERRL Eyes: OU Conjunctivae pale ENT: positive: ENT inspection nml, Pharynx nml, Dry mucous membranes Neck: positive: Nml inspection, Thyroid nml, No JVD Respiratory: positive: Chest non-tender, No respiratory distress, Breath sounds nml Cardiovascular: positive: Regular rate & rhythm, Bradycardia, Systolic murmur Peripheral Pulses: 2+ Radial (R), 2+ Radial (L) Abdomen: positive: Non-tender, Nml bowel sounds, Other (large hernia over most of mid-abdomen, soft) Back: positive: Nml inspection Skin: positive: No rash, Warm, Dry Extremities: positive: Non-tender, Full ROM, Nml appearance, No pedal edema Neurologic/Psychiatric: positive: Oriented x3, CN's nml (2-12), Motor nml, Sensation nml, Mood/affect nml Reflexes: Bicep (R): 3+, Bicep (L): 3+ - Lab Results Fish Bones: 06/10/18 04:40 06/10/18 04:40 Other Labs: Lab Results x24hrs 06/09/18 06/09/18 06/09/18 Range/Units 16:50 11:27 07:38 WBC (4.8-10.8) x10^3/uL RBC (4.20-5.40) 10^6/uL Hgb (12.0-16.0) g/dL Hct (37.0-47.0) % MCV (81.0-99.0) fL MCH (27.0-31.0) pg MCHC (32.0-36.0) g/dL RDW (12.0-15.0) % Plt Count (130-450) 10^3/uL MPV (7.9-10.8) fL Neut # (Auto) (1.5-6.6) 10^3/uL Lymph # (Auto) (1.5-3.5) 10^3/uL [place] # (Auto) (0.0-1.0) 10^3/uL Eos # (Auto) (0.0-0.7) 10^3/uL Baso # (Auto) (0.0-0.1) 10^3/uL Absolute Nucleated RBC x10^3/uL Nucleated RBC % /100WBC Sodium (135-145) mmol/L Potassium (3.5-5.0) mmol/L Chloride (101-111) mmol/L Carbon Dioxide (21-32) mmol/L Anion Gap (6-13) BUN (6-20) mg/dL Creatinine (0.4-1.0) mg/dL Estimated GFR (MDRD) (>89) Glucose (70-100) mg/dL POC Whole Bld Glucose 103 H 228 H 115 H (70 - 100) mg/dL Glycated Hemoglobin (4.6-6.2) % Estim Average Glucose (70-100) Calcium (8.5-10.3) mg/dL Lipase (22-51) U/L 06/09/18 06/09/18 06/09/18 Range/Units 05:05 05:05 05:05 WBC 10.6 (4.8-10.8) x10^3/uL RBC 4.97 (4.20-5.40) 10^6/uL Hgb 13.0 (12.0-16.0) g/dL Hct 39.3 (37.0-47.0) % MCV 79.1 L (81.0-99.0) fL MCH 26.2 L (27.0-31.0) pg MCHC 33.1 (32.0-36.0) g/dL RDW 16.2 H (12.0-15.0) % Plt Count 340 (130-450) 10^3/uL MPV 7.3 L (7.9-10.8) fL Neut # (Auto) 9.5 H (1.5-6.6) 10^3/uL Lymph # (Auto) 0.6 L (1.5-3.5) 10^3/uL [place] # (Auto) 0.5 (0.0-1.0) 10^3/uL Eos # (Auto) 0.0 (0.0-0.7) 10^3/uL Baso # (Auto) 0.0 (0.0-0.1) 10^3/uL Absolute Nucleated RBC 0.00 x10^3/uL Nucleated RBC % 0.0 /100WBC Sodium (135-145) mmol/L Potassium (3.5-5.0) mmol/L Chloride (101-111) mmol/L Carbon Dioxide (21-32) mmol/L Anion Gap (6-13) BUN (6-20) mg/dL Creatinine (0.4-1.0) mg/dL Estimated GFR (MDRD) (>89) Glucose (70-100) mg/dL POC Whole Bld Glucose (70 - 100) mg/dL Glycated Hemoglobin 6.9 H (4.6-6.2) % Estim Average Glucose 151 H (70-100) Calcium (8.5-10.3) mg/dL Lipase 47 (22-51) U/L 06/09/18 06/08/18 06/08/18 Range/Units 05:05 21:20 17:10 WBC (4.8-10.8) x10^3/uL RBC (4.20-5.40) 10^6/uL Hgb (12.0-16.0) g/dL Hct (37.0-47.0) % MCV (81.0-99.0) fL MCH (27.0-31.0) pg MCHC (32.0-36.0) g/dL RDW (12.0-15.0) % Plt Count (130-450) 10^3/uL MPV (7.9-10.8) fL Neut # (Auto) (1.5-6.6) 10^3/uL Lymph # (Auto) (1.5-3.5) 10^3/uL [place] # (Auto) (0.0-1.0) 10^3/uL Eos # (Auto) (0.0-0.7) 10^3/uL Baso # (Auto) (0.0-0.1) 10^3/uL Absolute Nucleated RBC x10^3/uL Nucleated RBC % /100WBC Sodium 137 (135-145) mmol/L Potassium 3.5 (3.5-5.0) mmol/L Chloride 105 (101-111) mmol/L Carbon Dioxide 25 (21-32) mmol/L Anion Gap 7.0 (6-13) BUN 12 (6-20) mg/dL Creatinine 0.6 (0.4-1.0) mg/dL Estimated GFR (MDRD) 107 (>89) Glucose 155 H (70-100) mg/dL POC Whole Bld Glucose 271 H 92 (70 - 100) mg/dL Glycated Hemoglobin (4.6-6.2) % Estim Average Glucose (70-100) Calcium 8.1 L (8.5-10.3) mg/dL Lipase (22-51) U/L ABX Reporting Has patient been on IV antibiotics over the past 48 hours?: No Assessment/Plan - Problem List (1) Pancreatitis Impression: Upon imaging, there is a questionable mild acute pancreatitis with numerous hyperenhancing nodules within the pancreatic parenchyma. Given the patient's acute pain, and description of symptoms, she is thought to have pancreatitis. Her lipase was slightly elevated at 61 upon admission, and today is WNL. She continues on a LANDING WORKER diluadid pump, of which she has required less attempts for today. I have resumed her home Methadone dose as she is primarily here for pain control. The LANDING WORKER directly replaces her home oxycodone. Plan: Continue daily labs, and symptom control. Qualifiers: Chronicity: acute (2) Hypertension, uncontrolled Impression: Preliminary echo results show a LV hypertrophy, with a reduced EF of 55-60. This may be a result of long standing uncontrolled HTN. She denies previous radiation, or chemo treatments. Blood pressure today was elevated at 154/66, with bradycardia (hr 50-60's). This hypertension may be caused by her acute pain. Plan: She is prescribed IV hydralazine, lisinopril and norvasc, which continue. (3) Hypokalemia Impression: Upon admission, the patient had a potassium of 2.9, that has now improved to 3.5 today. IV supplement was added to her IVFs, which continues. She is now tolerating meals, so I suspect that this will continue to improve. Plan: Daily labs, encourage oral intake. (4) Von Hippel-Lindau syndrome Impression: The patient sees oncology for this syndrome. It has caused her neuroendocrine tumors at multiple locations, without skin lesions. She is status post a Whipple procedure and bilateral adrenalectomies. She is not a candidate for chemotherapy or any invasive procedures. She gets octreotide injections monthly per oncology. Plan: Continue care. (5) Non-insulin dependent type 2 diabetes mellitus Impression: The patient has a hemoglobin A1C of 6.9%. She is prescribed Glimepiride at home , which is now on hold with Lantus to take the place at 12 units daily. She remains on blood glucose monitoring AC/HS, with SSI coverage. Plan: Continue to monitor, and treat with insulin. Plan to resume oral meds for discharge. (6) Endometrial polyp Impression: The patient states that she routinely has srinath blood monthly and upon imaging in the ED, an endometrial polyp is seen. She talked about receiving iron infusions in the past, and needs follow up for this ongoing bleeding. Plan: Monitor labs, and bleeding.
[2018-06-09] MEDS ORDERED: SODIUM CHLORIDE 0.9% 500 ML IV PRN (21:00)
[2018-06-10] MEDS: SODIUM CHLORIDE FLUSH 0.9% 10 ML SYRINGE IVP SCH ×2 (00:13→08:53)
[2018-06-10 05:15] LABS: BASOPHILS % (AUTO) 0.3 %; EOSINOPHILS % (AUTO) 0.5 %; HGB - HEMOGLOBIN 12.9 g/dL (12.0-16.0); LYMPHOCYTES # (AUTO) 0.9 10^3/uL (1.5-3.5); MEAN CORPUSCULAR HEMOGLOBIN 25.9 pg (27.0-31.0); MEAN CORPUSCULAR HGB CONC 32.8 g/dL (32.0-36.0); MEAN PLATELET VOLUME 7.7 fL (7.9-10.8); MONOCYTES # (AUTO) 0.6 10^3/uL (0.0-1.0); MONOCYTES % (AUTO) 6.7 %; NEUTROPHILS # (AUTO) 6.9 10^3/uL (1.5-6.6); NEUTROPHILS % (AUTO) 81.5 %; PLT - PLATELET COUNT 316 10^3/uL (130-450); RED BLOOD COUNT 4.99 10^6/uL (4.20-5.40); RED CELL DISTRIBUTION WIDTH 16.4 % (12.0-15.0); WHITE BLOOD COUNT 8.4 x10^3/uL (4.8-10.8)
[2018-06-10 05:28] LABS: ALBUMIN 3.1 g/dL (3.2-5.5); ALBUMIN/GLOBULIN RATIO 1.1 (1.0-2.2); BILIRUBIN,TOTAL 0.7 mg/dL (0.2-1.0); CALCIUM 8.3 mg/dL (8.5-10.3); CREATININE 0.7 mg/dL (0.4-1.0); TOTAL PROTEIN 5.8 g/dL (6.7-8.2)
[2018-06-10] MEDS: INSULIN ASPART 300 UNIT/3 ML PEN SUBQ SCH ×2 (07:48→11:46)
[2018-06-10] MEDS: GLIMEPIRIDE 2 MG TABLET PO SCH (08:52)
[2018-06-10] MEDS: amLODIPine 5 MG TABLET PO SCH (08:52)
[2018-06-10] MEDS: METHADONE 5 MG TABLET PO SCH ×2 (08:52→13:15)
[2018-06-10] MEDS: MULTIVITAMIN TABLET PO SCH (08:52)
[2018-06-10] MEDS: FLUDROCORTISONE 0.1 MG TABLET PO SCH (08:52)
[2018-06-10] MEDS: ASPIRIN CHEW 81 MG TABLET PO SCH (08:52)
[2018-06-10] MEDS: ASCORBIC ACID CHEW 500 MG TABLET PO SCH (08:52)
[2018-06-10] MEDS: LISINOPRIL 20 MG TABLET PO SCH (08:52)
[2018-06-10] MEDS: HYDROCORTISONE 10 MG TABLET PO SCH (08:52)
[2018-06-10] MEDS: POLYETHYLENE GLYCOL 3350 17 GM PACKET PO SCH (08:53)
[2018-06-10] MEDS: MAGNESIUM HYDROXIDE 2,400 MG/30 ML UDC PO SCH (08:53)
[2018-06-10] MEDS ORDERED: INSULIN GLARGINE 300 UNIT/3 ML PEN SUBQ SCH ×2 (09:00→21:33)
[2018-06-10] MEDS ORDERED: oxyCODONE 5 MG TABLET PO PRN (09:15)
--- NOTE | 2018-06-10 11:28 | DISCHARGE SUMMARY ---
Discharge Summary Admit Date: 06/08/18 Discharge Date: 06/10/18 Discharging Provider: ELISE Connor Primary Care Provider: Mireya Astorga Code Status: Attempt Resuscitation Condition at Discharge: Good Discharge Disposition: 01 Home, Self Care - DIAGNOSES Admission Diagnoses: Pain, unspecified (R52) Hypokalemia (E87.6) Type 2 diabetes mellitus without complications (E11.9) Unspecified adrenocortical insufficiency (E27.40) Discharge Diagnoses with Status of Each Condition: Acute pancreatitis without necrosis or infection, unsp (K85.90) improved, resolved. Essential (primary) hypertension (I10) chronic, needs followup with cardiology. Hypokalemia (E87.6) resolved. Other phakomatoses, not elsewhere classified (Q85.8) resolved. Type 2 diabetes mellitus without complications (E11.9) chronic, stable. Polyp of corpus uteri (N84.0) newly discovered, stable and no current bleeding. 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 She presented to the ED with a primary complaint of new abdominal pain that started last evening around 9PM on 06/07/18. She described the pain as sharp, constant, located in the periumbilical area and radiated to her back. She had mild altered mental status at the time of admission, but stated that her pain was "unbearable". She also complained of nausea and vomiting. She denied changes in her bowels, chest pain, a new cough, recent illness, sick contacts, increased edema, syncope, new headaches, or shortness of breath. The patient has a known history of pancreatic neuroendocrine tumors and has similar painful episodes related to this, although this pain is different that her other bouts. The patient recieves care at the who states that she is not a candidate for surgeries, invasive interventions or chemotherapy. The patient confirmed that she does not wish to transfer to that facility, she just wants her pain controlled. Upon presentation to the ED, the the patient was hemodynamically stable with the exception of mild hypertension with a blood pressure of 188/97, and this may have been from increased pain. Laboratory showed a low potassium of 2.9, blood glucose 118, an elevated WBC count of 11.7, mild elevation in lipase at 61, and otherwise unremarkable. Imaging confirmed acute mild pancreatitis, as well as several other abnormalities, see imaging below. She was admitted to observation for symptom management using a MEDICAL CHIEF TECHNICIAN for pain control, NPO diet and efforts to clear her stool burden. - HOSPITAL COURSE Hospital Course: (1) Pancreatitis Upon imaging, there is a questionable mild acute pancreatitis with numerous hyperenhancing nodules within the pancreatic parenchyma. Given the patient's acute pain, and description of symptoms, she is thought to have pancreatitis. Her lipase was slightly elevated at 61 upon admission, and today is WNL. She continues on a MEDICAL CHIEF TECHNICIAN diluadid pump, of which she has required less attempts for today. Her Methadone dose was resumed at he usual home dose. On the morning of discharge, she states that she was feeling back to normal, and her acute pain has subsided. Her pancreatic enzymes remained normal. This is considered resolved upon discharge. (2) Hypertension, uncontrolled Preliminary echo results show a LV hypertrophy, with a reduced EF of 55-60. This may be a result of long standing uncontrolled HTN. She denies previous radiation, or chemo treatments. Blood pressure prior to discharge was elevated at 158/78, with bradycardia (hr 50-60's). She was prescribed IV hydralazine, lisinopril and norvasc, which continued through out her hospital stay. All home meds were resumed upon discharge. (3) Hypokalemia Upon admission, the patient had a potassium of 2.9, that has now improved to 3.4 today. IV supplement was added to her IVFs, which continues. She was given a one time dose of oral Potassium 40 Meq. She is now tolerating meals, so I suspect that this will continue to improve. (4) Von Hippel-Lindau syndrome The patient sees oncology for this syndrome. It has caused her neuroendocrine tumors at multiple locations, without skin lesions. She is status post a Whipple procedure and bilateral adrenalectomies. She is not a candidate for chemotherapy or any invasive procedures. She gets octreotide injections monthly per oncology. (5) Non-insulin dependent type 2 diabetes mellitus The patient has a hemoglobin A1C of 6.9%. She is prescribed Glimepiride at home , which is now on hold with Lantus to take the place at 12 units daily. She remains on blood glucose monitoring AC/HS, with SSI coverage. The patient was continuously monitored, and treated with insulin while inpatient, and her home meds were resumed upon discharge (6) Endometrial polyp The patient states that she routinely has srinath blood monthly and upon imaging in the ED, an endometrial polyp is seen. She talked about receiving iron infusions in the past, and needs follow up for this ongoing bleeding. She denies current menses. Disposition: The patient was medically stable upon discharge and her original pain has subsided. She was weaned off her MEDICAL CHIEF TECHNICIAN pain pump, and the oxycodone was resumed. She was transported via private skilled nursing with family. - ALLERGIES Allergies/Adverse Reactions: Allergies Allergy/AdvReac Type Severity Reaction Status Date / Time Sulfa (Sulfonamide Allergy Rash Verified 06/08/18 02:38 Antibiotics) NSAIDS (Non-Steroidal AdvReac abd pain Verified 06/08/18 02:38 Anti-Inflamma - MEDICATIONS Home Medications: Ambulatory Orders Medication Instructions Recorded Confirmed Fludrocortisone Acetate 0.1 mg PO DAILY 06/02/13 06/09/18 Hydrocortisone [Cortef] 20 mg PO BID 06/02/13 06/08/18 Ascorbic Acid [Vitamin C] 250 mg PO DAILY 11/05/13 06/08/18 Ferrous Fumarate [Iron] 55 mg PO DAILY 11/05/13 06/09/18 Multivitamin [Multivitamins] 1 each PO DAILY 11/05/13 06/08/18 Acetaminophen [Tylenol] 650 mg PO Q4HR PRN #0 tablet 12/17/16 06/08/18 Aspirin 81 mg PO DAILY 07/13/17 06/08/18 Glimepiride 4 mg PO DAILY 07/13/17 06/08/18 Insulin Glargine [Lantus Solostar] 12 units SQ DAILY 07/13/17 06/09/18 Lisinopril 40 mg PO DAILY 07/13/17 06/08/18 Ondansetron Odt [Zofran Odt] 4 mg TL Q6H PRN #10 tablet 07/13/17 06/08/18 Amlodipine Besylate 10 mg PO DAILY 06/08/18 06/08/18 Methadone HCl 20 mg PO QID 06/08/18 06/08/18 Oxycodone HCl 10 mg PO Q4H PRN 06/08/18 06/08/18 - PHYSICAL EXAM AT DISCHARGE General Appearance: positive: No acute distress, Alert Eyes Bilateral: positive: Normal inspection, PERRL ENT: positive: ENT inspection nml, Pharynx nml, No signs of dehydration Neck: positive: Nml inspection, Thyroid nml, No JVD, Trachea midline Respiratory: positive: Chest non-tender, No respiratory distress, Breath sounds nml Cardiovascular: positive: Regular rate & rhythm, No gallop, Systolic murmur, Decreased pulse(s) Peripheral Pulses: positive: 1+ Abdomen: positive: Nml bowel sounds, Tenderness (Tenderness is decreased from admission, likely has chronic tenderness. Low abdomen with fibroid polyps.), Guarding, Hepatomegaly, Other (prior abnormal abdomen, large scarring over much of her abdomen, +abdominal hernias-stable. ) Back: positive: Nml inspection Skin: positive: No rash, Warm, Dry Extremities: positive: Non-tender, Full ROM, Nml appearance Neurologic/Psychiatric: positive: Oriented x3, CN's nml (2-12), Motor nml, Sensation nml, Depressed mood/affect Reflexes: Bicep (R): 3+, Bicep (L): 3+ - LABS Result Diagrams: 06/10/18 04:40 06/10/18 04:40 - DIAGNOSTIC IMAGING Diagnostic Imaging Results: Final report reviewed Diagnostic Imaging Results Comments: EXAM: CT ABDOMEN AND PELVIS EXAM DATE: 06/08/2018 04:20 AM. IMPRESSION: 1. Questionable mild acute pancreatitis. Numerous hyperenhancing nodules within the pancreatic parenchyma measuring up to 28 mm. Unclear if this is neoplastic or inflammatory in nature. Consider endoscopic ultrasound and biopsy. 2. Interval enlargement of the left abdominal probable pseudocysts measuring up to 10 cm. Additional 7 mm pseudocyst abuts the gastric body and may be amenable to transgastric drainage if clinically indicated. 3. Moderate stool burden. 4. Fibroid uterus. Additional 6 cm intracavitary mass could be a fibroid or endometrial polyp. 5. Previous extensive upper abdominal surgeries, including whipple procedure. 6. Large anterior abdominal hernia without apparent complication. 7. Fatty liver. These results were discussed with the patient, and she can attest to several of these findings as chronic, although, was not aware of her endometrial polyps. She states that she still menstruates and has uncontrolled bleeding during those times. She plans to follow up. ECHOCARDIOGRAM from 06/09/18 is pending, preliminary results showed: Mild concentric LV hypertrophy, normal function and an estimated EF of 55-60%. Pseudonormal LV filling pattern consistent with Grade II diastolic dysfunction. No regional wall motion abnormalities. Mild mitral regurg. Normal RV systolic pressures with an RVSP at rest of 29 mmHg. - FOLLOW UP Follow Up: Disposition: 01 Home, Self Care Condition: Good Diet: Regular Activity Restrictions: No Restrictions Shower Restrictions: No Driving Restrictions: No Weight Bearing: Full Weight Additional Instructions or Follow Up instructions: You were admitted for pain control and found to have a mild case of pancreatitis. Imaging showed several abnormalities, and an endometrial polyp, which explains your excessive bleeding during menses. You were also found to have a high stool burden, so you should keep up with a daily metamucil for good bowel maintenance. You had an echocardiogram because you continued to have high blood pressure. Preliminary results show a reduced ejection fraction estimated at 55-60%, with a thickened left ventricle. This may have been caused from longstanding high blood pressure. You had no valve abnormalities, and no obvious evidence of heart damage. Follow up with a slip presser since you could be on a better combination of medications; Low dose beta khadijah, low dose calcium channel khadijah and a moderate to high dose of a vasodilator (hydralazine). We did not make changes on this hospital stay, due to the observation-short stay nature. Please see your PCP within one week of this hospital stay. - TIME SPENT Time Spent in Discharge (Minutes): 50
[2018-06-10] MEDS ORDERED: POTASSIUM CHLORIDE 20 MEQ TABLET PO ONE (11:36)
--- NOTE | 2018-06-10 12:04 | Discharge Plan ---
Discharge Plan Disposition: 01 Home, Self Care Condition: Good Diet: Regular Activity Restrictions: No Restrictions Shower Restrictions: No Driving Restrictions: No Weight Bearing: Full Weight Additional Instructions or Follow Up instructions: You were admitted for pain control and found to have a mild case of pancreatitis. Imaging showed several abnormalities, and an endometrial polyp, which explains your excessive bleeding during menses. You were also found to have a high stool burden, so you should keep up with a daily metamucil for good bowel maintenance. You had an echocardiogram because you continued to have high blood pressure. Preliminary results show a reduced ejection fraction estimated at 55-60%, with a thickened left ventricle. This may have been caused from longstanding high blood pressure. You had no valve abnormalities, and no obvious evidence of heart damage. Follow up with a primary health organisation manager since you could be on a better combination of medications; Low dose beta khadijah, low dose calcium channel khadijah and a moderate to high dose of a vasodilator (hydralazine). We did not make changes on this hospital stay, due to the observation-short stay nature. Please see your PCP within one week of this hospital stay. No Smoking: If you smoke, Please STOP! Call for help. Follow-up with: Mireya Rosenberg PA-C [Primary Care Provider] -
[2018-06-10 13:21] VITALS: BP 149/71
== END 2018-06-10 13:48 | disposition home or self-care (01) ==
LOC: EDUNIT# → ED 02:28 → MS2 05:50
PROVIDERS: ADMIT Internal Medicine; ATTEND Nurse Practitioner
DX: K85.90 Acute pancreatitis without necrosis or infection, unspecified (principal); E86.0 Dehydration; E87.6 Hypokalemia; C7A.8 Other malignant neuroendocrine tumors; C7B.8 Other secondary neuroendocrine tumors; G89.3 Neoplasm related pain (acute) (chronic); E11.9 Type 2 diabetes mellitus without complications; N84.0 Polyp of corpus uteri; N92.0 Excessive and frequent menstruation with regular cycle; E89.6 Postprocedural adrenocortical (-medullary) hypofunction; I95.9 Hypotension, unspecified; G90.50 Complex regional pain syndrome I, unspecified; Q85.8 Other phakomatoses, not elsewhere classified; F11.20 Opioid dependence, uncomplicated; F41.9 Anxiety disorder, unspecified; F32.9 Major depressive disorder, single episode, unspecified; G47.33 Obstructive sleep apnea (adult) (pediatric); K21.9 Gastro-esophageal reflux disease without esophagitis; I11.0 Hypertensive heart disease with heart failure; I50.20 Unspecified systolic (congestive) heart failure; K43.9 Ventral hernia without obstruction or gangrene; D25.9 Leiomyoma of uterus, unspecified; F17.210 Nicotine dependence, cigarettes, uncomplicated; Z79.4 Long term (current) use of insulin; Z79.899 Other long term (current) drug therapy; Z90.49 Acquired absence of other specified parts of digestive tract; Z79.52 Long term (current) use of systemic steroids
CPT/HCPCS: 36415; 74177; 80048; 80053; 82150; 83036; 83690; 83735; 85025; 93306; 96361; 96365; 96366; 96375; 99283; 99284; A9270; G0378; J1815; J7040; Q9967

== ENCOUNTER 2018-06-13 04:45 | Emergency (ER) | payer MEDICAID ==
[2018-06-13] MEDS ORDERED: MORPHINE 10 MG/ML VIAL IVP STA ×2 (05:04→06:24)
[2018-06-13] MEDS ORDERED: SODIUM CHLORIDE 0.9% 1,000 ML IV ONE ×3 (05:04→06:24)
[2018-06-13] MEDS ORDERED: ONDANSETRON 4 MG/2 ML VIAL IVP STA (05:04)
--- NOTE | 2018-06-13 05:07 | ED Physician Documentation ---
PD HPI ABD PAIN - Stated complaint Stated Complaint: VOMITING/FEVER/BODY PX - History obtained from History obtained from: Patient - History of Present Illness Timing - onset: Chronic Timing - details: Intermittant, Waxing and waning Quality: Cramping, Aching Location: All over / everywhere, Epigastric Associated symptoms: Fever, Nausea, Vomiting. No: Diarrhea Similar symptoms before: Work up / diagnostics, Treatment Recently seen: Admitted - Additional information Additional information: Patient is a 47 year old female with a history of neuroendocrine tumors that are not treatable who is presenting to the emergency department for diffuse abdominal pain. patient had similar symptoms last week and was admitted for a few days. patient states that she felt better for a day before her symptoms returned. Review of Systems Constitutional: reports: Fever, Chills, Sweats Cardiac: denies: Chest pain / pressure, Palpitations Respiratory: denies: Cough GI: reports: Abdominal Pain, Nausea, Vomiting : denies: Dysuria, Frequency Skin: reports: Reviewed and negative Musculoskeletal: reports: Back pain Neurologic: reports: Generalized weakness. denies: Focal weakness, Numbness Immunocompromised: denies: Immunocompromised PD PAST MEDICAL HISTORY - Past Medical History Cardiovascular: None Respiratory: None Neuro: None Endocrine/Autoimmune: Other GI: Pancreatitis MANUFACTURING CONTROLLER: None : None HEENT: None, Other Psych: None Musculoskeletal: None Derm: None - Past Surgical History Past Surgical History: Yes General: Liver surgery Ortho: Spine surgery - Present Medications Home Medications: Ambulatory Orders Medication Instructions Recorded Confirmed Fludrocortisone Acetate 0.1 mg PO DAILY 06/02/13 06/09/18 Hydrocortisone [Cortef] 20 mg PO BID 06/02/13 06/08/18 Ascorbic Acid [Vitamin C] 250 mg PO DAILY 11/05/13 06/08/18 Ferrous Fumarate [Iron] 55 mg PO DAILY 11/05/13 06/09/18 Multivitamin [Multivitamins] 1 each PO DAILY 11/05/13 06/08/18 Acetaminophen [Tylenol] 650 mg PO Q4HR PRN #0 tablet 12/17/16 06/08/18 Aspirin 81 mg PO DAILY 07/13/17 06/08/18 Glimepiride 4 mg PO DAILY 07/13/17 06/08/18 Insulin Glargine [Lantus Solostar] 12 units SQ DAILY 07/13/17 06/09/18 Lisinopril 40 mg PO DAILY 07/13/17 06/08/18 Ondansetron Odt [Zofran Odt] 4 mg TL Q6H PRN #10 tablet 07/13/17 06/08/18 Amlodipine Besylate 10 mg PO DAILY 06/08/18 06/08/18 Methadone HCl 20 mg PO QID 06/08/18 06/08/18 Oxycodone HCl 10 mg PO Q4H PRN 06/08/18 06/08/18 - Allergies Allergies/Adverse Reactions: Allergies Allergy/AdvReac Type Severity Reaction Status Date / Time Sulfa (Sulfonamide Allergy Rash Verified 06/13/18 05:05 Antibiotics) NSAIDS (Non-Steroidal AdvReac abd pain Verified 06/13/18 05:05 Anti-Inflamma - Social History Does the pt smoke?: Yes Smoking Status: Current every day smoker Does the pt drink ETOH?: No Does the pt have substance abuse?: No - Immunizations Immunizations are current?: Yes - POLST Patient has POLST: No PD ED PE NORMAL - Vitals Vital signs reviewed: Yes - General General: Alert and oriented X 3 - HEENT HEENT: Atraumatic - Respiratory Respiratory: No respiratory distress - Derm Derm: Normal color, Warm and dry - Extremities Extremities: No deformity - Neuro Neuro: Alert and oriented X 3, No motor deficit Eye Opening: Spontaneous Motor: Obeys Commands Verbal: Oriented GCS Score: 15 - Psych Psych: Normal mood PD ED PE EXPANDED - General General: Alert, In Pain - Cardiac Cardiac: Tachy - Abdomen Abdomen: Tender to palpation, Generalized/diffuse. No: Rebound Results - Vitals Vitals: Vital Signs - 24 hr 06/13/18 06/13/18 06/13/18 04:50 05:10 05:37 Temperature 36.5 C Heart Rate 143 H 104 H 92 Respiratory 20 20 19 Rate Blood Pressure 119/90 H 149/89 H 107/76 O2 Saturation 98 95 98 06/13/18 06/13/18 06/13/18 05:46 05:52 06:07 Temperature 36.9 C Heart Rate 87 100 94 Respiratory 15 21 18 Rate Blood Pressure 113/66 O2 Saturation 98 99 100 Oxygen O2 Source Room air - EKG (time done) 0509 Rate: Rate (enter#) (109) Rhythm: Sinus tachycardia Intervals: Normal NV QRS: Normal Compare to prior EKG: Other (very minimal change when compared to 2015) - Labs Labs: Laboratory Tests 06/13/18 06/13/18 06/13/18 05:00 05:00 05:00 WBC 15.5 H RBC 4.80 Hgb 12.2 Hct 37.2 MCV 77.4 L MCH 25.4 L MCHC 32.8 RDW 16.0 H Plt Count 414 MPV 7.4 L Neut # (Auto) 14.1 H Lymph # (Auto) 1.2 L [place] # (Auto) 0.2 Eos # (Auto) 0.0 Baso # (Auto) 0.0 Absolute Nucleated RBC 0.00 Nucleated RBC % 0.0 Sodium 137 Potassium 3.4 L Chloride 97 L Carbon Dioxide 30 Anion Gap 10.0 BUN 18 Creatinine 0.7 Estimated GFR (MDRD) 89 Glucose 126 H Lactic Acid Calcium 8.4 L Phosphorus 3.1 Magnesium 2.4 Total Bilirubin 0.8 AST 24 ALT 21 Alkaline Phosphatase 74 Troponin I < 0.04 Total Protein 6.5 L Albumin 3.5 Globulin 3.0 Albumin/Globulin Ratio 1.2 Lipase 76 H HCG, Quant Urine Color Urine Clarity Urine pH Ur Specific [place] Urine Protein Urine Glucose (UA) Urine Ketones Urine Occult Blood Urine Nitrite Urine Bilirubin Urine Urobilinogen Ur Leukocyte Esterase Urine RBC Urine WBC Ur Squamous Epith Cells Urine Bacteria Urine Mucus Ur Microscopic Review Urine Culture Comments 06/13/18 06/13/18 06/13/18 05:00 05:00 05:29 WBC RBC Hgb Hct MCV MCH MCHC RDW Plt Count MPV Neut # (Auto) Lymph # (Auto) [place] # (Auto) Eos # (Auto) Baso # (Auto) Absolute Nucleated RBC Nucleated RBC % Sodium Potassium Chloride Carbon Dioxide Anion Gap BUN Creatinine Estimated GFR (MDRD) Glucose Lactic Acid 2.7 H Calcium Phosphorus Magnesium Total Bilirubin AST ALT Alkaline Phosphatase Troponin I Total Protein Albumin Globulin Albumin/Globulin Ratio Lipase HCG, Quant < 0.60 Urine Color YELLOW Urine Clarity CLEAR Urine pH 7.0 Ur Specific [place] 1.020 Urine Protein 30 H Urine Glucose (UA) NEGATIVE Urine Ketones NEGATIVE Urine Occult Blood LARGE H Urine Nitrite NEGATIVE Urine Bilirubin NEGATIVE Urine Urobilinogen 0.2 (NORMAL) Ur Leukocyte Esterase NEGATIVE Urine RBC 0-5 Urine WBC 0-3 Ur Squamous Epith Cells RARE Squamous Urine Bacteria None Seen Urine Mucus Few Strands Ur Microscopic Review INDICATED Urine Culture Comments NOT INDICATED PD MEDICAL DECISION MAKING - ED course Complexity details: reviewed old records, reviewed results, re-evaluated patient , considered differential, d/w patient ED course: Patient was seen and examined at bedside. Iv access was gained and labs were drawn. patient was treated with zofran, morphine and a fluid bolus. Patient was afebrile and tachycardia improved. Patient's labs showed a mild leukocytosis and a slight bump in her lactic acid. patient was started on a second liter of fluid. Patient was able to tolerate PO and pain was well controlled. this seemed to be an exacerbation of her chronic conditions. Patient had follow up with her GI doctor the following day and that was likely the best thing for her. Patient and were given detailed discharge and follow up instructions. patient required no further work up at this time and was stable for discharge with outpatient follow up. - Sepsis Event Vital Signs: Vital Signs - 24 hr 06/13/18 06/13/18 06/13/18 04:50 05:10 05:37 Temperature 36.5 C Heart Rate 143 H 104 H 92 Respiratory 20 20 19 Rate Blood Pressure 119/90 H 149/89 H 107/76 O2 Saturation 98 95 98 06/13/18 06/13/18 06/13/18 05:46 05:52 06:07 Temperature 36.9 C Heart Rate 87 100 94 Respiratory 15 21 18 Rate Blood Pressure 113/66 O2 Saturation 98 99 100 Oxygen O2 Source Room air Departure - Departure Disposition: 01 Home, Self Care Clinical Impression: Dehydration, Abdominal pain Condition: Good Instructions: ED Dehydration Follow-Up: primary,care provider [Other] - Tomorrow Comments: It is important that you stay well hydrated and follow up with your doctor tomorrow. You should continue with your pain management but increase your fluid intake. You should return to the emergency department for fevers, chills or worsening symptoms. If your blood cultures are positive you will be called.
[2018-06-13 05:24] LABS: BASOPHILS % (AUTO) 0.2 %; EOSINOPHILS % (AUTO) 0.2 %; HGB - HEMOGLOBIN 12.2 g/dL (12.0-16.0); LYMPHOCYTES # (AUTO) 1.2 10^3/uL (1.5-3.5); LYMPHOCYTES % (AUTO) 7.7 %; MEAN CORPUSCULAR HEMOGLOBIN 25.4 pg (27.0-31.0); MEAN CORPUSCULAR HGB CONC 32.8 g/dL (32.0-36.0); MEAN CORPUSCULAR VOLUME 77.4 fL (81.0-99.0); MEAN PLATELET VOLUME 7.4 fL (7.9-10.8); MONOCYTES # (AUTO) 0.2 10^3/uL (0.0-1.0); NEUTROPHILS # (AUTO) 14.1 10^3/uL (1.5-6.6); NEUTROPHILS % (AUTO) 90.9 %; PLT - PLATELET COUNT 414 10^3/uL (130-450); WHITE BLOOD COUNT 15.5 x10^3/uL (4.8-10.8)
[2018-06-13 05:46] LABS: BILIRUBIN,URINE NEGATIVE (NEGATIVE); GLUCOSE, URINE (UA) NEGATIVE (NEGATIVE); KETONES,URINE (UA) NEGATIVE (NEGATIVE); LEUKOCYTE ESTERASE, URINE NEGATIVE (NEGATIVE); NITRITE,URINE NEGATIVE (NEGATIVE); OCCULT BLOOD,URINE LARGE (NEGATIVE); PROTEIN,URINE 30 mg/dL (NEGATIVE); UROBILINOGEN,URINE 0.2 (NORMAL) E.U./dL (NORMAL)
[2018-06-13 05:46] LABS: ALBUMIN 3.5 g/dL (3.2-5.5); ALBUMIN/GLOBULIN RATIO 1.2 (1.0-2.2); BILIRUBIN,TOTAL 0.8 mg/dL (0.2-1.0); CALCIUM 8.4 mg/dL (8.5-10.3); CREATININE 0.7 mg/dL (0.4-1.0); MAGNESIUM 2.4 mg/dL (1.7-2.8); PHOSPHORUS 3.1 mg/dL (2.5-4.6); TOTAL PROTEIN 6.5 g/dL (6.7-8.2)
[2018-06-13 05:49] LABS: CLARITY,URINE CLEAR (CLEAR)
[2018-06-13 05:55] LABS: BACTERIA,URINE None Seen /HPF (None Seen); MUCUS,URINE Few Strands; RBC,URINE 0-5 /HPF (0-5); SQUAMOUS EPITHELIAL CELL,UR RARE Squamous (<= Few)
[2018-06-13 06:59] VITALS: BP 106/64
== END 2018-06-13 07:00 | disposition home or self-care (01) ==
LOC: ED 04:45
DX: E86.0 Dehydration (principal); R10.9 Unspecified abdominal pain; R00.0 Tachycardia, unspecified; D3A.8 Other benign neuroendocrine tumors; F17.200 Nicotine dependence, unspecified, uncomplicated
CPT/HCPCS: 36415; 80053; 81001; 81003; 83605; 83690; 83735; 84100; 84484; 84702; 85025; 87040; 87086; 93005; 96361; 96374; 96376; 99284

== ENCOUNTER 2018-09-22 15:23 | Outpatient (CLI) | payer MEDICAID ==
[2018-09-22 19:16] LABS: BASOPHILS % (AUTO) 0.4 %; EOSINOPHILS # (AUTO) 0.1 10^3/uL (0.0-0.7); EOSINOPHILS % (AUTO) 0.7 %; HGB - HEMOGLOBIN 13.1 g/dL (12.0-16.0); LYMPHOCYTES # (AUTO) 0.9 10^3/uL (1.5-3.5); LYMPHOCYTES % (AUTO) 9.6 %; MEAN CORPUSCULAR HEMOGLOBIN 26.6 pg (27.0-31.0); MEAN CORPUSCULAR HGB CONC 32.4 g/dL (32.0-36.0); MEAN CORPUSCULAR VOLUME 82.3 fL (81.0-99.0); MEAN PLATELET VOLUME 7.7 fL (7.9-10.8); MONOCYTES # (AUTO) 0.3 10^3/uL (0.0-1.0); MONOCYTES % (AUTO) 3.7 %; NEUTROPHILS # (AUTO) 7.9 10^3/uL (1.5-6.6); NEUTROPHILS % (AUTO) 85.6 %; PLT - PLATELET COUNT 443 10^3/uL (130-450); RED BLOOD COUNT 4.93 10^6/uL (4.20-5.40); RED CELL DISTRIBUTION WIDTH 17.7 % (12.0-15.0); WHITE BLOOD COUNT 9.3 x10^3/uL (4.8-10.8)
[2018-09-22 19:54] LABS: CALCIUM 9.1 mg/dL (8.5-10.3); CREATININE 0.9 mg/dL (0.4-1.0)
== END 2018-09-22 23:59 ==
LOC: LAB.N 15:23
PROVIDERS: ATTEND Physician Assistant Medical
DX: Z86.39 Personal history of other endocrine, nutritional and metabolic disease (principal); C25.9 Malignant neoplasm of pancreas, unspecified; I10 Essential (primary) hypertension; D64.9 Anemia, unspecified
CPT/HCPCS: 36415; 80048; 82728; 83540; 84466; 85025

== ENCOUNTER 2019-07-12 10:53 | Outpatient (CLI) | payer MEDICAID ==
[2019-07-12 19:08] LABS: CHOL/HDL RATIO 2.1 (<4.4); CHOLESTEROL 152 mg/dL; HDL CHOLESTEROL 72 mg/dL; LDL CHOLESTEROL,CALCULATED 63 mg/dL; LDL/HDL RATIO 0.9 (<4.4); VLDL CHOLESTEROL 17 mg/dL
[2019-07-12 19:18] LABS: HB2 TOTAL 13.8 g/dL; HEMOGLOBIN A1C 0.87 g/dL; HEMOGLOBIN A1C % 7.9 % (4.6-6.2)
== END 2019-07-12 23:59 | disposition home or self-care (01) ==
LOC: LAB.N 10:53
PROVIDERS: ATTEND Internal Medicine Endocrinology, Diabetes & Metabolism
DX: E08.9 Diabetes mellitus due to underlying condition without complications (principal); Z94.4 Liver transplant status
CPT/HCPCS: 36415; 80061; 82043; 83036; 83721; 84443

== ENCOUNTER 2019-07-17 15:00 | Outpatient (CLI) | payer MEDICAID ==
[2019-07-17 19:04] LABS: BASOPHILS % (AUTO) 0.3 %; EOSINOPHILS % (AUTO) 0.1 %; HGB - HEMOGLOBIN 13.3 g/dL (12.0-16.0); LYMPHOCYTES # (AUTO) 1.2 10^3/uL (1.5-3.5); LYMPHOCYTES % (AUTO) 11.2 %; MEAN CORPUSCULAR HEMOGLOBIN 26.9 pg (27.0-31.0); MEAN CORPUSCULAR HGB CONC 30.5 g/dL (32.0-36.0); MEAN CORPUSCULAR VOLUME 88.1 fL (81.0-99.0); MEAN PLATELET VOLUME 9.6 fL (7.9-10.8); MONOCYTES # (AUTO) 0.7 10^3/uL (0.0-1.0); MONOCYTES % (AUTO) 6.9 %; NEUTROPHILS # (AUTO) 8.5 10^3/uL (1.5-6.6); NEUTROPHILS % (AUTO) 81.1 %; PLT - PLATELET COUNT 430 10^3/uL (130-450); RED BLOOD COUNT 4.95 10^6/uL (4.20-5.40); RED CELL DISTRIBUTION WIDTH 14.2 % (12.0-15.0); WHITE BLOOD COUNT 10.5 x10^3/uL (4.8-10.8)
[2019-07-17 19:35] LABS: CALCIUM 8.9 mg/dL (8.5-10.3); CREATININE 0.7 mg/dL (0.4-1.0); MAGNESIUM 2.4 mg/dL (1.7-2.8)
[2019-07-17 19:55] LABS: FOLATE 13.53 ng/mL (5.90 - >24.8)
== END 2019-07-17 23:59 | disposition home or self-care (01) ==
LOC: LAB.N 15:00
PROVIDERS: ATTEND Physician Assistant Medical
DX: M79.605 Pain in left leg (principal); Z86.39 Personal history of other endocrine, nutritional and metabolic disease; D64.9 Anemia, unspecified; E11.9 Type 2 diabetes mellitus without complications; G90.59 Complex regional pain syndrome I of other specified site
CPT/HCPCS: 36415; 80048; 82607; 82746; 83735; 85025

== ENCOUNTER 2020-05-06 16:50 | Outpatient (CLI) | payer MEDICAID ==
--- NOTE | 2020-05-06 18:07 | Ultrasound Report ---
PROCEDURE: Duplex Ext Veins Left INDICATIONS: LT LEG SWELLING TECHNIQUE: Real-time imaging, as well as color and pulse Doppler interrogation, were performed of the lower extr emity deep veins from the inguinal ligament to the popliteal fossa. COMPARISON: None. FINDINGS: The deep veins are normally compressible, and free of intraluminal thrombus. Color and pu lse Doppler demonstrate normal phasic intraluminal flow. There is normal augmentation response to di stal compression maneuver. 86 mm Bhatti's cyst. IMPRESSION: 1. No evidence of left lower extremity DVT. 2. Bhatti's cyst. Reviewed by: Amaya Ku MD on 05/06/2020 5:06 PM [facility] Approved by: Amaya Ku MD on 05/06/2020 5:06 PM [facility] Station ID: [id number]
== END 2020-05-06 16:51 | disposition home or self-care (01) ==
LOC: DI 16:50
PROVIDERS: ATTEND Nurse Practitioner Adult Health
DX: M79.89 Other specified soft tissue disorders (principal); C7A.8 Other malignant neuroendocrine tumors

== ENCOUNTER 2020-06-17 13:43 | Outpatient (CLI) | payer MEDICAID ==
[2020-06-17 18:31] LABS: BASOPHILS % (AUTO) 0.1 %; HGB - HEMOGLOBIN 9.8 g/dL (12.0-16.0); LYMPHOCYTES # (AUTO) 0.4 10^3/uL (1.5-3.5); MEAN CORPUSCULAR HEMOGLOBIN 25.5 pg (27.0-31.0); MEAN CORPUSCULAR HGB CONC 28.2 g/dL (32.0-36.0); MEAN CORPUSCULAR VOLUME 90.1 fL (81.0-99.0); MEAN PLATELET VOLUME 9.3 fL (7.9-10.8); MONOCYTES # (AUTO) 0.5 10^3/uL (0.0-1.0); MONOCYTES % (AUTO) 3.4 %; NEUTROPHILS % (AUTO) 92.7 %; PLT - PLATELET COUNT 583 10^3/uL (130-450); RED BLOOD COUNT 3.85 10^6/uL (4.20-5.40); RED CELL DISTRIBUTION WIDTH 15.1 % (12.0-15.0)
[2020-06-17 18:51] LABS: ALBUMIN 3.1 g/dL (3.2-5.5); ALBUMIN/GLOBULIN RATIO 1.3 (1.0-2.2); BILIRUBIN,TOTAL 0.8 mg/dL (0.2-1.0); CALCIUM 8.1 mg/dL (8.5-10.3); CREATININE 0.7 mg/dL (0.4-1.0); TOTAL PROTEIN 5.4 g/dL (6.7-8.2)
[2020-06-17 19:01] LABS: PLATELET ESTIMATE, MANUAL INCREASED (>450,000) (NORMAL); PLATELET MORPHOLOGY NORMAL APPEARANCE (NORMAL)
== END 2020-06-17 13:44 | disposition home or self-care (01) ==
LOC: LAB.WCP 13:43
PROVIDERS: ATTEND Family Medicine
DX: K92.2 Gastrointestinal hemorrhage, unspecified (principal)
CPT/HCPCS: 36415; 80053; 85025

== ENCOUNTER 2020-08-26 08:00 | Outpatient (CLI) | payer MEDICAID ==
[2020-08-26 18:05] LABS: BASOPHILS % (AUTO) 0.2 %; LYMPHOCYTES # (AUTO) 0.3 10^3/uL (1.5-3.5); LYMPHOCYTES % (AUTO) 2.8 %; MEAN CORPUSCULAR HEMOGLOBIN 23.6 pg (27.0-31.0); MEAN CORPUSCULAR HGB CONC 28.7 g/dL (32.0-36.0); MEAN CORPUSCULAR VOLUME 82.3 fL (81.0-99.0); MEAN PLATELET VOLUME 9.2 fL (7.9-10.8); MONOCYTES # (AUTO) 0.3 10^3/uL (0.0-1.0); MONOCYTES % (AUTO) 2.9 %; NEUTROPHILS # (AUTO) 10.9 10^3/uL (1.5-6.6); NEUTROPHILS % (AUTO) 93.6 %; PLT - PLATELET COUNT 496 10^3/uL (130-450); RED BLOOD COUNT 5.08 10^6/uL (4.20-5.40); RED CELL DISTRIBUTION WIDTH 18.7 % (12.0-15.0); WHITE BLOOD COUNT 11.6 x10^3/uL (4.8-10.8)
[2020-08-26 18:26] LABS: ALBUMIN 3.6 g/dL (3.2-5.5); ALBUMIN/GLOBULIN RATIO 1.4 (1.0-2.2); BILIRUBIN,TOTAL 0.9 mg/dL (0.2-1.0); CALCIUM 8.6 mg/dL (8.5-10.3); CREATININE 0.8 mg/dL (0.4-1.0); TOTAL PROTEIN 6.1 g/dL (6.7-8.2)
[2020-08-26 18:41] LABS: FREE T3 2.66 pg/mL (2.5-3.9)
[2020-08-26 18:43] LABS: THYROID STIMULATING HORMONE 0.3 uIU/mL (0.34-5.60)
[2020-08-26 18:45] LABS: FREE T4 (FREE THYROXINE) 1.16 ng/dL (0.58-1.64)
[2020-08-26 19:12] LABS: PLATELET ESTIMATE, MANUAL INCREASED (>450,000) (NORMAL); PLATELET MORPHOLOGY NORMAL APPEARANCE (NORMAL)
== END 2020-08-26 23:59 | disposition home or self-care (01) ==
LOC: LAB.WCP 08:00
PROVIDERS: ATTEND Family Medicine
DX: I10 Essential (primary) hypertension (principal); E11.9 Type 2 diabetes mellitus without complications; D64.9 Anemia, unspecified; D35.00 Benign neoplasm of unspecified adrenal gland; K92.2 Gastrointestinal hemorrhage, unspecified; K21.9 Gastro-esophageal reflux disease without esophagitis; I25.10 Atherosclerotic heart disease of native coronary artery without angina pectoris; C7A.8 Other malignant neuroendocrine tumors; Q85.8 Other phakomatoses, not elsewhere classified
CPT/HCPCS: 36415; 80053; 84439; 84443; 84481; 85025

== ENCOUNTER 2020-12-24 19:55 | Outpatient (CLI) | payer MEDICAID | END 2020-12-24 19:56 | disposition short-term general hospital (02) | LOC: EMS 19:55 | DX: M54.9 Dorsalgia, unspecified (principal) | CPT/HCPCS: A0425; A0429; A0999 ==

== ENCOUNTER 2021-01-14 08:00 | Outpatient (CLI) | payer MEDICAID ==
[2021-01-14 18:10] LABS: BASOPHILS % (AUTO) 0.2 %; HCT - HEMATOCRIT 43.3 % (37.0-47.0); HGB - HEMOGLOBIN 13.4 g/dL (12.0-16.0); LYMPHOCYTES # (AUTO) 0.4 10^3/uL (1.5-3.5); LYMPHOCYTES % (AUTO) 3.5 %; MEAN CORPUSCULAR HEMOGLOBIN 26.1 pg (27.0-31.0); MEAN CORPUSCULAR HGB CONC 30.9 g/dL (32.0-36.0); MEAN CORPUSCULAR VOLUME 84.4 fL (81.0-99.0); MEAN PLATELET VOLUME 8.8 fL (7.9-10.8); MONOCYTES # (AUTO) 0.5 10^3/uL (0.0-1.0); MONOCYTES % (AUTO) 4.7 %; NEUTROPHILS # (AUTO) 9.4 10^3/uL (1.5-6.6); NEUTROPHILS % (AUTO) 90.8 %; PLT - PLATELET COUNT 363 10^3/uL (130-450); RED BLOOD COUNT 5.13 10^6/uL (4.20-5.40); RED CELL DISTRIBUTION WIDTH 17.1 % (12.0-15.0); WHITE BLOOD COUNT 10.4 x10^3/uL (4.8-10.8)
[2021-01-14 18:34] LABS: ALBUMIN 3.5 g/dL (3.2-5.5); ALBUMIN/GLOBULIN RATIO 1.3 (1.0-2.2); BILIRUBIN,TOTAL 1.2 mg/dL (0.2-1.0); CALCIUM 8.4 mg/dL (8.5-10.3); CREATININE 0.6 mg/dL (0.4-1.0); POTASSIUM 2.7 mmol/L (3.5-5.0); TOTAL PROTEIN 6.3 g/dL (6.7-8.2)
--- OUTSIDE RECORDS SUMMARY | 2021-01-21 00:30 | EXTERNAL MEDICAL SUMMARY RPT | Continuity of Care Document ---
:1970 Demographics Phone Unavailable Preferred Language Kazakh Marital Status Unknown Presybeterian Affiliation Unknown Race Unknown Ethnic Group Unknown Author Organization [facility] Address [address] [phone] Phone Care Team Providers Name Role Phone Chet Unavailable Unavailable Procedures date description facility [id number] [facility] Vital Signs date measurement value source 20201224 BMI 17.6 kg/m2 20201224 BP_diastolic 78 mm[Hg] 20201224 BP_systolic 155 mm[Hg] 20201224 heart_rate 87 /min 20201224 height_metric 152.4 cm 20201224 height_standard 60 in 20201224 respiration_rate 16 /min 20201224 temperature_metric 36.44 C 20201224 temperature_standard 97.6 F 20201224 weight_metric 18.52 kg 20201224 weight_standard 40.82 lb Social History date description facility [id number]
== END 2021-01-14 23:59 | disposition home or self-care (01) ==
LOC: LAB.WCP 08:00
PROVIDERS: ATTEND Internal Medicine
DX: C7A.8 Other malignant neuroendocrine tumors (principal)
CPT/HCPCS: 36415; 80053; 81599; 85025; 86316

== ENCOUNTER 2021-02-19 23:12 | Emergency (ER) | payer MEDICAID ==
--- OUTSIDE RECORDS SUMMARY | 2021-02-19 23:15 | EXTERNAL MEDICAL SUMMARY RPT | Continuity of Care Document ---
:1970 Demographics Phone Unavailable Preferred Language [place] Marital Status Unknown Yazidism Affiliation Unknown Race Unknown Ethnic Group Unknown Author Organization [place] Address [address] [phone] Phone Care Team Providers Name Role Phone Mireya Rosenberg Unavailable Unavailable Problems date description facility [id number] [facility] [id number] Met. neuroendocrine, hypokalmia, rash, [facility] edema. Procedures date description facility 20201224 [facility] Vital Signs date measurement value source 20201224 weight_standard 40.82 lb 20201224 weight_metric 18.52 kg 20201224 temperature_standard 97.6 F 20201224 temperature_metric 36.44 C 20201224 respiration_rate 16 /min 20201224 height_standard 60 in 20201224 height_metric 152.4 cm 20201224 heart_rate 87 /min 20201224 BP_systolic 155 mm[Hg] 20201224 BP_diastolic 78 mm[Hg] 20201224 BMI 17.6 kg/m2
--- OUTSIDE RECORDS SUMMARY | 2021-02-19 23:24 | EXTERNAL MEDICAL SUMMARY RPT | Continuity of Care Document ---
:1970 Demographics Phone Unavailable Preferred Language American Marital Status Unknown Caodaism Affiliation Unknown Race Unknown Ethnic Group Unknown Author Organization [facility] Address [address] [phone] Phone Care Team Providers Name Role Phone Mireya Rosenberg Unavailable Unavailable Problems date description facility [id number] [facility] [id number] Met. neuroendocrine, hypokalmia, rash, [facility] edema. Procedures date description facility 20201224 [facility] Vital Signs date measurement value source 20201224 weight_standard 40.82 lb 20201224 weight_metric 18.52 kg 20201224 temperature_standard 97.6 F 20201224 temperature_metric 36.44 C 20201224 respiration_rate 16 /min 20201224 height_standard 60 in 20201224 height_metric 152.4 cm 20201224 heart_rate 87 /min 20201224 BP_systolic 155 mm[Hg] 20201224 BP_diastolic 78 mm[Hg] 20201224 BMI 17.6 kg/m2
--- NOTE | 2021-02-20 01:15 | ED Physician Documentation ---
History of Present Illness - Stated complaint Stated Complaint: LEG SWELLING - Chief complaint Chief Complaint: Ext Problem - History obtained from History obtained from: Patient - History of Present Illness Timing: Chronic Pain level now: 8 Associated symptoms: back pain - Additonal information Additional information: c/o bilateral painful leg swelling x several weeks. she also has low back pain associated with recently diagnosed L1 fracture. she was seen at ED 1 week ago for her leg swelling, w/u included bilateral LE doppler US (no DVT) and blood tests. she was prescribed torsemide at that time to help with the peripheral edema. patient says the swelling has improved and a large bulla has since rup tured and not recurred. her chief concern is the severe leg pain (bilateral). Review of Systems Constitutional: reports: Reviewed and negative Cardiac: reports: Reviewed and negative Respiratory: reports: Reviewed and negative GI: reports: Abdominal Pain. 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 : None HEENT: None, Other Psych: None Musculoskeletal: None Derm: None - Past Surgical History Past Surgical History: Yes General: Liver surgery Ortho: Spine surgery - Present Medications Home Medications: Ambulatory Orders Medication Instructions Recorded Confirmed Fludrocortisone Acetate 0.1 mg PO DAILY 06/02/13 06/09/18 Hydrocortisone [Cortef] 20 mg PO BID 06/02/13 06/08/18 Ascorbic Acid [Vitamin C] 250 mg PO DAILY 11/05/13 06/08/18 Ferrous Fumarate [Iron] 55 mg PO DAILY 11/05/13 06/09/18 Multivitamin [Multivitamins] 1 each PO DAILY 11/05/13 06/08/18 Acetaminophen [Tylenol] 650 mg PO Q4HR PRN #0 tablet 12/17/16 06/08/18 Aspirin 81 mg PO DAILY 07/13/17 06/08/18 Glimepiride 4 mg PO DAILY 07/13/17 06/08/18 Insulin Glargine [Lantus Solostar] 12 units SQ DAILY 07/13/17 06/09/18 Ondansetron Odt [Zofran Odt] 4 mg TL Q6H PRN #10 tablet 07/13/17 06/08/18 lisinopriL [Lisinopril] 40 mg PO DAILY 07/13/17 06/08/18 Amlodipine Besylate 10 mg PO DAILY 06/08/18 06/08/18 Methadone HCl 20 mg PO QID 06/08/18 06/08/18 Oxycodone HCl 10 mg PO Q4H PRN 06/08/18 06/08/18 Torsemide 20 mg PO DAILY #4 tablet 02/20/21 - Allergies Allergies/Adverse Reactions: Allergies Allergy/AdvReac Type Severity Reaction Status Date / Time Sulfa (Sulfonamide Allergy Rash Verified 02/19/21 23:19 Antibiotics) NSAIDS (Non-Steroidal AdvReac abd pain Verified 02/19/21 23:19 Anti-Inflamma - Social History Does the pt smoke?: Yes Smoking Status: Current every day smoker Does the pt drink ETOH?: No Does the pt have substance abuse?: No - Immunizations Immunizations are current?: Yes - POLST Patient has POLST: No PD ED PE NORMAL - Vitals Vital signs reviewed: Yes - General General: Alert and oriented X 3, No acute distress, Well developed/nourished - HEENT HEENT: Moist mucous membranes - Neck Neck: Supple, no meningeal sign - Cardiac Cardiac: RRR, No murmur - Respiratory Respiratory: No respiratory distress, Clear bilaterally - Abdomen Abdomen: Soft, Non tender - Derm Derm: Normal color, Warm and dry - Neuro Neuro: Alert and oriented X 3 PD ED PE EXPANDED - Extremities Extremities: Pedal edema bilateral (BLE pitting edema with ruptured large bulla left pretibial surface. No erythema or abnormal warmth to suggest infectious process) Results - Vitals Vitals: Oxygen O2 Source Room air - Labs Labs: Laboratory Tests 02/20/21 02/20/21 02:25 02:25 WBC 9.8 RBC 4.21 Hgb 11.5 L Hct 36.8 L MCV 87.4 MCH 27.3 MCHC 31.3 L RDW 16.5 H Plt Count 333 MPV 9.3 Neut # (Auto) 8.9 H Lymph # (Auto) 0.4 L [place] # (Auto) 0.4 Eos # (Auto) 0.0 Baso # (Auto) 0.0 Absolute Nucleated RBC 0.00 Nucleated RBC % 0.0 Sodium 143 Potassium 3.4 L Chloride 104 Carbon Dioxide 29 Anion Gap 10.0 BUN 17 Creatinine 0.9 Estimated GFR (MDRD) 66 L Glucose 132 H Calcium 8.0 L Total Bilirubin 0.7 AST 29 ALT 34 Alkaline Phosphatase 198 H Total Protein 5.0 L Albumin 2.6 L Globulin 2.4 Albumin/Globulin Ratio 1.1 Lipase 17 L PD MEDICAL DECISION MAKING - ED course Complexity details: reviewed results, re-evaluated patient, considered differential, d/w patient ED course: Patient present for BLE pain associated with peripheral edema. She has von- hippel lindau syndrome. She was recently started on torsemide and this has helped with the edema, tonight she is provided with rx for a few more days to get through the weekend and hopefulky can be reassessed Tuesday. She had good pain relief with fentanyl followed by morphine. Reassuring blood tests with good kidney function and trivial hypokalemia Departure - Departure Disposition: 01 Home, Self Care Clinical Impression: Von Hippel-Lindau syndrome, Peripheral edema Condition: Good Instructions: ED Edema Legs Bilateral Follow-Up: Rogerio Corado MD [Primary Care Provider] - Prescriptions: Torsemide 20 mg PO DAILY #4 tablet Discharge Date/Time: 02/20/21 04:56
[2021-02-20] MEDS ORDERED: fentaNYL 100 MCG/2 ML VIAL IM STA (01:54)
[2021-02-20 02:28] LABS: BASOPHILS % (AUTO) 0.1 %; HCT - HEMATOCRIT 36.8 % (37.0-47.0); HGB - HEMOGLOBIN 11.5 g/dL (12.0-16.0); LYMPHOCYTES # (AUTO) 0.4 10^3/uL (1.5-3.5); MEAN CORPUSCULAR HEMOGLOBIN 27.3 pg (27.0-31.0); MEAN CORPUSCULAR HGB CONC 31.3 g/dL (32.0-36.0); MEAN CORPUSCULAR VOLUME 87.4 fL (81.0-99.0); MEAN PLATELET VOLUME 9.3 fL (7.9-10.8); MONOCYTES # (AUTO) 0.4 10^3/uL (0.0-1.0); NEUTROPHILS # (AUTO) 8.9 10^3/uL (1.5-6.6); NEUTROPHILS % (AUTO) 90.9 %; PLT - PLATELET COUNT 333 10^3/uL (130-450); RED BLOOD COUNT 4.21 10^6/uL (4.20-5.40); RED CELL DISTRIBUTION WIDTH 16.5 % (12.0-15.0); WHITE BLOOD COUNT 9.8 x10^3/uL (4.8-10.8)
[2021-02-20 02:41] LABS: ALBUMIN 2.6 g/dL (3.2-5.5); ALBUMIN/GLOBULIN RATIO 1.1 (1.0-2.2); BILIRUBIN,TOTAL 0.7 mg/dL (0.2-1.0); CREATININE 0.9 mg/dL (0.4-1.0); POTASSIUM 3.4 mmol/L (3.5-5.0)
[2021-02-20] MEDS ORDERED: MORPHINE 10 MG/ML VIAL IM STA ×2 (03:27→03:28)
[2021-02-20] MEDS ORDERED: MORPHINE 2 MG/ML CARPUJECT IVP STA (03:28)
[2021-02-20 04:18] VITALS: BP 155/82
== END 2021-02-20 04:56 | disposition home or self-care (01) ==
LOC: ED 23:12
DX: Q85.8 Other phakomatoses, not elsewhere classified (principal); R60.0 Localized edema; F17.200 Nicotine dependence, unspecified, uncomplicated; Z79.82 Long term (current) use of aspirin; Z79.4 Long term (current) use of insulin; Z79.899 Other long term (current) drug therapy
CPT/HCPCS: 36415; 80053; 83690; 85025; 96372; 99283; 99284

== ENCOUNTER 2021-02-24 12:56 | Outpatient (CLI) | payer MEDICAID | END 2021-02-24 12:57 | disposition critical access hospital (66) | LOC: EMS 12:56 | DX: R11.2 Nausea with vomiting, unspecified (principal); M54.9 Dorsalgia, unspecified; G89.29 Other chronic pain | CPT/HCPCS: A0425; A0429; A0999 ==

== ENCOUNTER 2021-02-24 13:24 | Emergency (ER) | payer MEDICAID ==
[2021-02-24] MEDS ORDERED: SODIUM CHLORIDE 0.9% 1,000 ML IV STA ×2 (14:13→15:02)
[2021-02-24] MEDS ORDERED: HYDROmorphone 1 MG/ML CARPUJECT IVP STA (14:13)
[2021-02-24] MEDS ORDERED: PROMETHAZINE INJ 25 MG in SODIUM CHLORIDE 0.9% 50 ML IV STA (14:13)
--- NOTE | 2021-02-24 14:15 | ED Physician Documentation ---
PD HPI NVD - Stated complaint Stated Complaint: N/V - Chief complaint Chief Complaint: Abd Pain - History obtained from History obtained from: Patient - History of Present Illness Timing - onset: How many days ago (4) Timing - duration: Days (4) Pain level max: 0 Pain level now: 0 Associated symptoms: No: Fever, Abdominal pain, Chest pain, Hematemesis, Melena, Hematochezia, Dizzy, Near syncope / syncope, Loss of appetite, Weight loss, Dysuria, Hematuria, Vaginal bleeding, Vaginal dc, Testicular pain Contributing factors: Diabetes (Blood sugar 167). 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 She is on methadone and oxycodone at home for an L1/L2 fracture that is about 2 months old. No fevers. No chills. No diarrhea. Nothing makes it better or worse. She states she has not been able to keep her potassium down, but has been able to keep her pain medication down. Review of Systems Ten Systems: 10 systems reviewed and negative Constitutional: denies: Fever, Chills Ears: denies: Ear pain Nose: denies: Rhinorrhea / runny nose, Congestion Throat: denies: Sore throat Cardiac: denies: Chest pain / pressure Respiratory: denies: Cough, Hemoptysis Skin: denies: Rash Musculoskeletal: reports: Back pain (chronic, worse since the vomiting started). 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 : None HEENT: None, Other Psych: None Musculoskeletal: None Derm: None - Past Surgical History Past Surgical History: Yes General: Liver surgery Ortho: Spine surgery - Present Medications Home Medications: Ambulatory Orders Medication Instructions Recorded Confirmed Fludrocortisone Acetate 0.1 mg PO DAILY 06/02/13 06/09/18 Hydrocortisone [Cortef] 20 mg PO BID 06/02/13 06/08/18 Ascorbic Acid [Vitamin C] 250 mg PO DAILY 11/05/13 06/08/18 Ferrous Fumarate [Iron] 55 mg PO DAILY 11/05/13 06/09/18 Multivitamin [Multivitamins] 1 each PO DAILY 11/05/13 06/08/18 Acetaminophen [Tylenol] 650 mg PO Q4HR PRN #0 tablet 12/17/16 06/08/18 Aspirin 81 mg PO DAILY 07/13/17 06/08/18 Glimepiride 4 mg PO DAILY 07/13/17 06/08/18 Insulin Glargine [Lantus Solostar] 12 units SQ DAILY 07/13/17 06/09/18 Ondansetron Odt [Zofran Odt] 4 mg TL Q6H PRN #10 tablet 07/13/17 06/08/18 lisinopriL [Lisinopril] 40 mg PO DAILY 07/13/17 06/08/18 Amlodipine Besylate 10 mg PO DAILY 06/08/18 06/08/18 Methadone HCl 20 mg PO QID 06/08/18 06/08/18 Oxycodone HCl 10 mg PO Q4H PRN 06/08/18 06/08/18 Torsemide 20 mg PO DAILY #4 tablet 02/20/21 - Allergies Allergies/Adverse Reactions: Allergies Allergy/AdvReac Type Severity Reaction Status Date / Time Sulfa (Sulfonamide Allergy Rash Verified 02/24/21 13:35 Antibiotics) NSAIDS (Non-Steroidal AdvReac abd pain Verified 02/24/21 13:35 Anti-Inflamma - Social History Does the pt smoke?: Yes Smoking Status: Current every day smoker Does the pt drink ETOH?: No Does the pt have substance abuse?: No - Immunizations Immunizations are current?: Yes - POLST Patient has POLST: No PD ED PE NORMAL - Vitals Vital signs reviewed: Yes - General General: Alert and oriented X 3, No acute distress - HEENT HEENT: PERRL, Other (dry lips) - Neck Neck: Supple, no meningeal sign - Cardiac Cardiac: RRR, Strong equal pulses - Respiratory Respiratory: No respiratory distress, Clear bilaterally - Abdomen Abdomen: Soft, Non tender, Other (mild distention, large R sided hernia, nontender. no skin changes) - Back Back: No CVA TTP, No spinal TTP - Derm Derm: Warm and dry - Extremities Extremities: Other (2+ BLE pitting edema. L arm edema as well. ) - Neuro Neuro: Alert and oriented X 3 - Psych Psych: Normal mood, Normal affect Results - Vitals Vitals: Vital Signs - 24 hr 02/24/21 02/24/21 02/24/21 13:32 15:49 18:24 Temperature 36.6 C Heart Rate 93 82 71 Respiratory 18 16 16 Rate Blood Pressure 154/101 H 131/86 H 143/82 H O2 Saturation 100 100 100 02/24/21 02/24/21 19:58 21:08 Temperature 36.5 C Heart Rate 90 90 Respiratory 17 14 Rate Blood Pressure 144/91 H 144/90 H O2 Saturation 99 99 Oxygen O2 Source Room air - Labs Labs: Laboratory Tests 02/24/21 02/24/21 14:10 14:10 WBC 10.4 RBC 4.26 Hgb 11.8 L Hct 38.1 MCV 89.4 MCH 27.7 MCHC 31.0 L RDW 17.0 H Plt Count 482 H MPV 9.0 Neut # (Auto) 8.8 H Lymph # (Auto) 0.9 L [place] # (Auto) 0.6 Eos # (Auto) 0.0 Baso # (Auto) 0.0 Absolute Nucleated RBC 0.00 Nucleated RBC % 0.0 Sodium 140 Potassium 3.6 Chloride 103 Carbon Dioxide 24 Anion Gap 13.0 BUN 24 H Creatinine 1.4 H Estimated GFR (MDRD) 40 L Glucose 167 H Calcium 8.3 L Phosphorus 3.9 Magnesium 2.2 Total Bilirubin 0.9 AST 28 ALT 33 Alkaline Phosphatase 267 H Total Protein 5.2 L Albumin 2.5 L Globulin 2.7 Albumin/Globulin Ratio 0.9 L Lipase 18 L - Rads (name of study) CT abd/pelvis Radiology: Prelim report reviewed, EMP read contemporaneously, See rad report PD MEDICAL DECISION MAKING - ED course Complexity details: reviewed results, re-evaluated patient, considered differential, d/w patient ED course: 50-year-old female given IV fluids, Phenergan, Dilaudid. Feels much better. Tolerating p.o. without difficulty. No acute findings on CT scan. Her initial IV did infiltrate, therefore the CT was without contrast. It was decided not to restart an IV, patient was comfortable with this. We will have her follow-up closely with her doctor for further care. Patient counseled regarding signs and symptoms for which I believe and urgent re-evaluation would be necessary. Patient with good understanding of and agreement to plan and is comfortable going home at this time This document was made in part using voice recognition software. While efforts are made to proofread this document, sound alike and grammatical errors may occur. IMPRESSION: 1. The quality of visualization is very limited by this study versus the prior examination in 2018 which utilized intravenous contrast. With this qualification it is difficult to differentiate between acute or chronic abnormalities that have developed subsequent to the 2018 study. There is a very large body wall defect anteriorly at the abdomen, and extensive postsurgical change with multiple metallic surgical clips producing metal artifact somewhat limiting quality of visualization of the pancreas area. There may be a 5.5 cm pancreatic pseudocyst at the midline in the epigastrium but the exact anatomy in that area is indeterminate. 2. The body wall defect allowing ventral herniation over much of the abdominal wall through the abdomen and pelvis extends into the pelvis, but there is no evidence of bowel incarceration or strangulation. Apparent acute or subacute right symphysis pubis fracture. Etiology uncertain. Please correlate clinically. 3. No intestinal obstruction or perforation is found. No abscess is suspected. This is in the context of a relatively poor quality of visualization of the abdomen and pelvis as detailed above. Departure - Departure Disposition: 01 Home, Self Care Clinical Impression: Dehydration Vomiting Qualifiers: Vomiting type: unspecified Vomiting Intractability: unspecified Nausea presence: with nausea Qualified Code(s): R11.2 - Nausea with vomiting, unspecified Condition: Good Instructions: ED Nausea Vomiting Follow-Up: Rogerio Corado MD [Primary Care Provider] - Within 3 Days Comments: Follow up with your doctor for further care. Your labs and CT scan do not show any acute abnormalities today. Discharge Date/Time: 02/24/21 21:09
[2021-02-24 14:17] LABS: BASOPHILS % (AUTO) 0.1 %; EOSINOPHILS % (AUTO) 0.1 %; HCT - HEMATOCRIT 38.1 % (37.0-47.0); HGB - HEMOGLOBIN 11.8 g/dL (12.0-16.0); LYMPHOCYTES # (AUTO) 0.9 10^3/uL (1.5-3.5); LYMPHOCYTES % (AUTO) 8.6 %; MEAN CORPUSCULAR HEMOGLOBIN 27.7 pg (27.0-31.0); MEAN CORPUSCULAR VOLUME 89.4 fL (81.0-99.0); MONOCYTES # (AUTO) 0.6 10^3/uL (0.0-1.0); MONOCYTES % (AUTO) 5.7 %; NEUTROPHILS # (AUTO) 8.8 10^3/uL (1.5-6.6); NEUTROPHILS % (AUTO) 84.7 %; PLT - PLATELET COUNT 482 10^3/uL (130-450); RED BLOOD COUNT 4.26 10^6/uL (4.20-5.40); WHITE BLOOD COUNT 10.4 x10^3/uL (4.8-10.8)
[2021-02-24] MEDS ORDERED: PROMETHAZINE 25 MG/1 ML VIAL ONE (14:28)
[2021-02-24 14:34] LABS: ALBUMIN 2.5 g/dL (3.2-5.5); ALBUMIN/GLOBULIN RATIO 0.9 (1.0-2.2); BILIRUBIN,TOTAL 0.9 mg/dL (0.2-1.0); CALCIUM 8.3 mg/dL (8.5-10.3); CREATININE 1.4 mg/dL (0.4-1.0); MAGNESIUM 2.2 mg/dL (1.7-2.8); PHOSPHORUS 3.9 mg/dL (2.5-4.6); POTASSIUM 3.6 mmol/L (3.5-5.0); TOTAL PROTEIN 5.2 g/dL (6.7-8.2)
[2021-02-24] MEDS ORDERED: IOPAMIDOL-300 100 ML VIAL ONE (14:39)
[2021-02-24] MEDS ORDERED: HYDROmorphone 1 MG/ML CARPUJECT IM STA ×2 (16:02→19:02)
--- NOTE | 2021-02-24 17:11 | CT Report ---
PROCEDURE: Abdomen/Pelvis WO INDICATIONS: Diffuse abd pain TECHNIQUE: Noncontrast 5 mm thick sections acquired from the diaphragms to the symphysis. 5 mm coronal and sagi ttal reformats were then performed. For radiation dose reduction, the following was used: automated exposure control, adjustment of mA and/or kV according to patient size. COMPARISON: None. FINDINGS: Image quality: Reduced by absence of oral and intravenous contrast.. ABDOMEN: Lung bases: Lung bases are clear. Heart size is normal. Solid organs: Liver and spleen are normal in size. Gallbladder not seen. Pancreas is not well seen in contours and there is also extensive metallic surgical clips with metal artifact through the epig astrium and peripancreatic regions. Note is measuring up to 5.5 cm in diameter. There is a large body wall defect allowing extension of herniated bowel into the subcutaneous fat, through a peritoneal de fect measuring approximately 22 cm in transverse dimension. No adrenal nodules. Kidneys are normal in size, without hydronephrosis or nephrolithiasis. Peritoneum and bowel: Unenhanced bowel loops demonstrate normal wall thickness and caliber. No free fluid or air. Nodes and vessels: No retroperitoneal or mesenteric adenopathy by size criteria. Aorta and inferior vena cava are normal in caliber. Miscellaneous: No ventral hernias. Body wall anasarca. PELVIS: Genitourinary: Bladder wall thickness is normal. Miscellaneous: No inguinal hernias or adenopathy. Body wall anasarca. There is a small amount of fr ee peritoneal fluid in the cul-de-sac. Bones: No suspicious bony lesions. What appears to be a relatively acute fractures seen at the right symphysis pubis. This was not present on prior CT scanning from 2018. No vertebral body compression fractures. IMPRESSION: 1. The quality of visualization is very limited by this study versus the prior examination in 2018 wh ich utilized intravenous contrast. With this qualification it is difficult to differentiate between acute or chronic abnormalities that have developed subsequent to the 2018 study. There is a very larg e body wall defect anteriorly at the abdomen, and extensive postsurgical change with multiple metalli c surgical clips producing metal artifact somewhat limiting quality of visualization of the pancreas area. There may be a 5.5 cm pancreatic pseudocyst at the midline in the epigastrium but the exact sandrita britni in that area is indeterminate. 2. The body wall defect allowing ventral herniation over much of the abdominal wall through the abdom en and pelvis extends into the pelvis, but there is no evidence of bowel incarceration or strangulati on. Apparent acute or subacute right symphysis pubis fracture. Etiology uncertain. Please correlate c linically. 3. No intestinal obstruction or perforation is found. No abscess is suspected. This is in the context of a relatively poor quality of visualization of the abdomen and pelvis as detailed above. Reviewed by: Andres Rolon MD on 02/24/2021 5:09 PM PDT Approved by: Andres Rolon MD on 02/24/2021 5:09 PM PDT Station ID: [id number]
[2021-02-24 21:09] VITALS: BP 144/90
== END 2021-02-24 21:09 | disposition home or self-care (01) ==
LOC: EDUNIT# → ED 13:24
DX: E86.0 Dehydration (principal); R11.2 Nausea with vomiting, unspecified; K46.9 Unspecified abdominal hernia without obstruction or gangrene; T80.89XA Other complications following infusion, transfusion and therapeutic injection, initial encounter; M54.9 Dorsalgia, unspecified; S32.019D Unspecified fracture of first lumbar vertebra, subsequent encounter for fracture with routine healing; S32.029D Unspecified fracture of second lumbar vertebra, subsequent encounter for fracture with routine healing; X58.XXXD Exposure to other specified factors, subsequent encounter; F17.200 Nicotine dependence, unspecified, uncomplicated; Z79.82 Long term (current) use of aspirin
CPT/HCPCS: 36415; 74176; 80053; 83690; 83735; 84100; 85025; 96365; 96375; 96376; 99284; J1170; J7040

== ENCOUNTER 2021-03-26 21:06 | Outpatient (CLI) | payer MEDICAID | END 2021-03-26 21:07 | disposition critical access hospital (66) | LOC: EMS 21:06 | PROVIDERS: ATTEND Emergency Medicine | DX: M54.9 Dorsalgia, unspecified (principal); M79.18 Myalgia, other site; R53.1 Weakness | CPT/HCPCS: A0425; A0429; A0999 ==

== ENCOUNTER 2021-03-26 21:37 | Emergency (ER) | payer MEDICAID ==
[2021-03-26] MEDS ORDERED: SODIUM CHLORIDE 0.9% 1,000 ML IV STA (21:43)
--- OUTSIDE RECORDS SUMMARY | 2021-03-26 21:57 | EXTERNAL MEDICAL SUMMARY RPT | Continuity of Care Document ---
:1970 Demographics Phone Unavailable Preferred Language Unknown Marital Status Unknown Church Affiliation Unknown Race Unknown Ethnic Group Unknown Author Organization [facility] Address [address] [phone] Phone Allergies Encounters Medications Problems date description facility [id number] [facility], LEG SWELLING [facility] [id number] Met. neuroendocrine, hypokalmia, rash, [facility] edema. Results
[2021-03-26 22:10] LABS: BASOPHILS % (AUTO) 0.1 %; HCT - HEMATOCRIT 40.6 % (37.0-47.0); HGB - HEMOGLOBIN 12.3 g/dL (12.0-16.0); LYMPHOCYTES # (AUTO) 0.3 10^3/uL (1.5-3.5); LYMPHOCYTES % (AUTO) 2.3 %; MEAN CORPUSCULAR HEMOGLOBIN 27.8 pg (27.0-31.0); MEAN CORPUSCULAR HGB CONC 30.3 g/dL (32.0-36.0); MEAN CORPUSCULAR VOLUME 91.9 fL (81.0-99.0); MONOCYTES # (AUTO) 0.4 10^3/uL (0.0-1.0); NEUTROPHILS # (AUTO) 11.8 10^3/uL (1.5-6.6); NEUTROPHILS % (AUTO) 94.1 %; PLT - PLATELET COUNT 412 10^3/uL (130-450); RED BLOOD COUNT 4.42 10^6/uL (4.20-5.40); RED CELL DISTRIBUTION WIDTH 15.6 % (12.0-15.0); WHITE BLOOD COUNT 12.5 x10^3/uL (4.8-10.8)
[2021-03-26 22:24] LABS: ALBUMIN 1.9 g/dL (3.2-5.5); ALBUMIN/GLOBULIN RATIO 0.8 (1.0-2.2); BILIRUBIN,TOTAL 0.7 mg/dL (0.2-1.0); CALCIUM 7.7 mg/dL (8.5-10.3); CREATININE 0.8 mg/dL (0.4-1.0); POTASSIUM 4.1 mmol/L (3.5-5.0); TOTAL PROTEIN 4.4 g/dL (6.7-8.2)
[2021-03-27] MEDS ORDERED: oxyCODONE 5 MG TABLET PO STA ×4 (00:07→17:22)
[2021-03-27 03:16] LABS: CORONAVIRUS 229E-RESP PCR NOT DETECTED; CORONAVIRUS HKU1-RESP PCR NOT DETECTED; CORONAVIRUS NL63-RESP PCR NOT DETECTED; CORONAVIRUS OC43-RESP PCR NOT DETECTED; HUMAN METAPNEUMOVIRUS NOT DETECTED; RHINOVIRUS/ENTEROVIRUS NOT DETECTED; SARS-CoV-2 -RESP PCR PANEL NOT DETECTED
[2021-03-27 03:17] LABS: B. PARAPERTUSSIS- RESP PCR PAN NOT DETECTED; B. PERTUSSIS- RESP PCR PANEL NOT DETECTED; C. PNEUMONIAE- RESP PCR PANEL NOT DETECTED; INFLUENZA A- RESP PCR PANEL NOT DETECTED; INFLUENZA B - RESP PCR PANEL NOT DETECTED; M. PNEUMONIAE- RESP PCR PANEL NOT DETECTED; PARAINFLUENZA VIRUS 1 NOT DETECTED; PARAINFLUENZA VIRUS 2 NOT DETECTED; PARAINFLUENZA VIRUS 3 NOT DETECTED; PARAINFLUENZA VIRUS 4 NOT DETECTED; RSV- RESP PCR PANEL NOT DETECTED
--- NOTE | 2021-03-27 04:02 | ED Physician Documentation ---
History of Present Illness - Stated complaint Stated Complaint: GEN WEAKNESS/ BACK PX - Chief complaint Chief Complaint: Ext Problem - History obtained from History obtained from: Patient, EMS - Additonal information Additional information: Patient comes emergency department chief complaint of "my cannot take care of me anymore". Patient states that she has a longstanding medical history which includes pancreatic and no renal cancer. She also has chronic fatigue and chronic extremity edema and spends much of her time in bed. She states that her normally takes care of her, but that he now has lung cancer and is not able to provide the care that he usually would for the patient. The patient states she is struggling to get out of bed by herself and that she has wounds that she needs help dressing. Additionally, the patient suffered a spinal fracture weeks ago, she reports, and has pain in her back because of this. No fevers or chills. No chest pain or shortness of breath. No vomiting. No other complaints at this time. Review of Systems Ten Systems: 10 systems reviewed and negative Constitutional: reports: Fatigue Eyes: reports: Reviewed and negative Ears: reports: Reviewed and negative Nose: reports: Reviewed and negative Throat: reports: Reviewed and negative Cardiac: reports: Reviewed and negative Respiratory: reports: Reviewed and negative GI: reports: Reviewed and negative : reports: Reviewed and negative Skin: reports: Reviewed and negative Musculoskeletal: reports: Reviewed and negative Neurologic: reports: Generalized weakness, Reviewed and negative Psychiatric: reports: Reviewed and negative Endocrine: reports: Reviewed and negative Immunocompromised: reports: Reviewed and negative PD PAST MEDICAL HISTORY - Past Medical History Past Medical History: Yes Cardiovascular: None Respiratory: None Neuro: None Endocrine/Autoimmune: Other GI: Pancreatitis 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 HEENT: None, Other Psych: None Musculoskeletal: None Derm: None - Past Surgical History Past Surgical History: Yes General: Liver surgery Ortho: Spine surgery - Present Medications Home Medications: Ambulatory Orders Medication Instructions Recorded Confirmed Fludrocortisone Acetate 0.1 mg PO DAILY 06/02/13 03/26/21 Hydrocortisone [Cortef] 20 mg PO BID 06/02/13 03/26/21 Ascorbic Acid [Vitamin C] 250 mg PO DAILY 11/05/13 03/26/21 Ferrous Fumarate [Iron] 55 mg PO DAILY 11/05/13 03/26/21 Multivitamin [Multivitamins] 1 each PO DAILY 11/05/13 03/26/21 Acetaminophen [Tylenol] 650 mg PO Q4HR PRN #0 tablet 12/17/16 03/26/21 Aspirin 81 mg PO DAILY 07/13/17 03/26/21 Glimepiride 4 mg PO DAILY 07/13/17 03/26/21 Insulin Glargine [Lantus Solostar] 12 units SQ DAILY 07/13/17 03/26/21 Ondansetron Odt [Zofran Odt] 4 mg TL Q6H PRN #10 tablet 07/13/17 03/26/21 lisinopriL [Lisinopril] 40 mg PO DAILY 07/13/17 03/26/21 Amlodipine Besylate 10 mg PO DAILY 06/08/18 03/26/21 Methadone HCl 20 mg PO QID 06/08/18 03/26/21 Oxycodone HCl 10 mg PO Q4H PRN 06/08/18 03/26/21 Torsemide 20 mg PO DAILY #4 tablet 02/20/21 03/26/21 - Allergies Allergies/Adverse Reactions: Allergies Allergy/AdvReac Type Severity Reaction Status Date / Time Sulfa (Sulfonamide Allergy Rash Verified 03/26/21 21:46 Antibiotics) NSAIDS (Non-Steroidal AdvReac abd pain Verified 03/26/21 21:46 Anti-Inflamma - Social History Does the pt smoke?: Yes Smoking Status: Current every day smoker Does the pt drink ETOH?: No Does the pt have substance abuse?: No - Immunizations Immunizations are current?: Yes - POLST Patient has POLST: No PD ED PE NORMAL - Vitals Vital signs reviewed: Yes - General General: Alert and oriented X 3, No acute distress, Other (Chronically ill- appearing female, appears much older than stated age) - HEENT HEENT: Atraumatic, PERRL, EOMI, Moist mucous membranes - Neck Neck: Supple, no meningeal sign - Cardiac Cardiac: RRR, No murmur - Respiratory Respiratory: No respiratory distress, Clear bilaterally - Abdomen Abdomen: Soft, Non tender, Non distended - Back Back: No CVA TTP - Derm Derm: Normal color, Other (Thin skin with marked pitting edema both legs, with weeping of serous fluid from a couple of wounds.) - Extremities Extremities: No deformity, Other (Marked edema. Extremities symmetrical.) - Neuro Neuro: Alert and oriented X 3, adult neurologist 2-12 intact, Normal speech - Psych Psych: Normal mood, Normal affect Results - Vitals Vitals: Vital Signs - 24 hr 03/26/21 03/26/21 03/26/21 21:46 21:49 23:49 Temperature 36.9 C 36.9 C 36.9 C Heart Rate 90 90 78 Respiratory 19 19 18 Rate Blood Pressure 158/80 H 158/80 H 130/83 H O2 Saturation 100 100 100 03/27/21 03/27/21 01:00 03:00 Temperature 36.9 C 36.8 C Heart Rate 78 71 Respiratory 17 18 Rate Blood Pressure 132/84 H 110/72 O2 Saturation 98 99 Oxygen O2 Source Room air - Labs Labs: Laboratory Tests 03/26/21 03/26/21 03/27/21 22:03 22:03 02:14 WBC 12.5 H RBC 4.42 Hgb 12.3 Hct 40.6 MCV 91.9 MCH 27.8 MCHC 30.3 L RDW 15.6 H Plt Count 412 MPV 9.0 Neut # (Auto) 11.8 H Lymph # (Auto) 0.3 L [place] # (Auto) 0.4 Eos # (Auto) 0.0 Baso # (Auto) 0.0 Absolute Nucleated RBC 0.00 Nucleated RBC % 0.0 Sodium 139 Potassium 4.1 Chloride 101 Carbon Dioxide 29 Anion Gap 9.0 BUN 18 Creatinine 0.8 Estimated GFR (MDRD) 76 L Glucose 131 H Calcium 7.7 L Total Bilirubin 0.7 AST 19 ALT 15 Alkaline Phosphatase 197 H Total Protein 4.4 L Albumin 1.9 L Globulin 2.5 Albumin/Globulin Ratio 0.8 L Lipase 16 L Nasal Adenovirus (PCR) NOT DETECTED Nasal B. parapertussis DNA (PCR) NOT DETECTED Nasal Coronavir 229E PCR NOT DETECTED Nasal Coronavir HKU1 PCR NOT DETECTED Nasal Coronavir NL63 PCR NOT DETECTED Nasal Coronavir OC43 PCR NOT DETECTED Nasal Enterovir/Rhinovir PCR NOT DETECTED Nasal Influenza B PCR NOT DETECTED Nasal Influenza A PCR NOT DETECTED Nasal Parainfluen 1 PCR NOT DETECTED Nasal Parainfluen 2 PCR NOT DETECTED Nasal Parainfluen 3 PCR NOT DETECTED Nasal Parainfluen 4 PCR NOT DETECTED Nasal RSV (PCR) NOT DETECTED Nasal B.pertussis DNA PCR NOT DETECTED Nasal C.pneumoniae (PCR) NOT DETECTED Randal Human Metapneumo PCR NOT DETECTED Nasal M.pneumoniae (PCR) NOT DETECTED Nasal SARS-CoV-2 (PCR) NOT DETECTED PD MEDICAL DECISION MAKING - ED course Complexity details: reviewed results, re-evaluated patient, considered differential, d/w patient ED course: The patient was worked up with labs which were fairly unremarkable. I discussed with the patient that she does not meet criteria for admission and that perhaps the best thing would be to have the patient speak with the family welfare social work professor while she is here to see what resources can be set up for her at home or whether, if the patient is agreeable, she can be gotten into an assisted living facility. She was agreeable to staying to talk to the family welfare social work professor. Patient will be sign ed out to oncoming emergency physician Dr. Preston pending conversation with social work and final disposition. Departure - Departure Clinical Impression: Generalized weakness, Unable to care for self, Peripheral edema
[2021-03-27] MEDS ORDERED: methocarbamoL 500 MG TABLET PO STA (09:12)
--- NOTE | 2021-03-27 12:49 | ED Physician Documentation ---
ED Addendum - Addendum Addendum: 03/27/21 12:49 50-year-old woman signed out to me by Dr. Isbell. She presented by ambulance. She has a history of pancreatic cancer. Her recently was diagnosed with cancer as well and cannot take care of her anymore. She is very mildly confused. She has extensive sacral and right-sided pressure ulcers, both stage III. White count is 12. She appears older than stated age. Social work is seeing her, for my opinion though it would be best for her to go to a [facility] facility for wound care for pressure ulcers, aggressive PT and OT as she is very deconditioned. 03/27/21 13:48 Patient wanted to be admitted, I explored this by talking with our hospitalist, Dr. Jose who felt that if the pressure ulcer required surgical debridement and the surgeon was willing to do it, then that is not unreasonable. Subsequently I discussed the case by phone with our general surgeon, Dr. Kunal Wilks who noting that one of the deep ulcers was directly over her spinal stimulator did not feel like he had any comfort level with that and I clarified with the patient that she had this placed at [facility] by Dr. Eubanks and a call was placed to [facility] for consultation and potential transfer. 03/27/21 14:29 [facility] promptly notified us that they were full and could not entertain transfer of this patient. I spoke with the hospitalist in [place] (Willi) who felt like we should talk to the spine surgeon communications equipment operator their first since they do not place spine stimulators in [place]. 03/27/21 14:38 Subsequently the transfer center at [place] contacted their neurosurgeon, Dr. Kaur. He was in surgery so I did not speak with him directly, but was passed on to me that he does not manage spinal stimulators. In the interim, I spoke with the patient, it turns out that she had already seen a Zia Harvey, at the [facility]. He was willing to take her spinal stimulator out so we will give them a ring. 03/27/21 17:[address] Zavala at shift change pending call back from [facility] spine.
[2021-03-27 17:21] LABS: BILIRUBIN,URINE NEGATIVE (NEGATIVE); GLUCOSE, URINE (UA) NEGATIVE (NEGATIVE); KETONES,URINE (UA) NEGATIVE (NEGATIVE); LEUKOCYTE ESTERASE, URINE NEGATIVE (NEGATIVE); NITRITE,URINE NEGATIVE (NEGATIVE); OCCULT BLOOD,URINE NEGATIVE (NEGATIVE); PROTEIN,URINE 30 mg/dL (NEGATIVE); UROBILINOGEN,URINE 0.2 (NORMAL) E.U./dL (NORMAL)
[2021-03-27 17:32] LABS: CLARITY,URINE CLEAR (CLEAR); RBC,URINE 0-5 /HPF (0-5); WBC,URINE 0-3 /HPF (0-5)
[2021-03-27 17:33] LABS: AMORPHOUS SEDIMENT,UR Rare /LPF; BACTERIA,URINE Rare /HPF (None Seen); CASTS, URINE 0-2 Hyaline Casts /LPF; MUCUS,URINE Few Strands; SQUAMOUS EPITHELIAL CELL,UR MOD Squamous (<= Few)
[2021-03-27] MEDS ORDERED: METHADONE 5 MG TABLET PO STA (17:44)
--- NOTE | 2021-03-27 18:55 | ED Physician Documentation ---
ED Addendum - Addendum Addendum: I talked with Dr. Atwood, neurosurgery at [facility], who states he would like a CT of the lumbar spine with contrast to evaluate for any signs of infection in the deep structures and and to addition to just the subcutaneous battery pack area. To call back and talk to the spine on-call when we have the images available in the reading. At this point he would be reluctant to accept transfer if it is just around the subcutaneous apparatus. 03/27/21 18:54
[2021-03-27] MEDS ORDERED: IOVERSOL 320 100 ML VIAL IVP ONE ×2 (18:58→22:02)
[2021-03-27] MEDS ORDERED: LORazepam 2 MG/ML VIAL IVP STA (20:00)
--- NOTE | 2021-03-27 21:19 | CT Report ---
PROCEDURE: LUMBAR SPINE W INDICATIONS: spine stimulator with overlying infection CONTRAST: IV CONTRAST: Optiray 320 ml: 100 PO CONTRAST: *NO PO CONTRAST TECHNIQUE: After the administration of intravenous Isovue contrast, 3 mm thick sections acquired from the T12 le rafia to the sacrum. Sagittal and coronal reformats were constructed. For radiation dose reduction, t he following was used: automated exposure control, adjustment of mA and/or kV according to patient s ize. COMPARISON: 02/24/[address] lower chest/abdomen/pelvis. FINDINGS: Image quality: Diminished by metal artifact from multiple surgical clips and body habitus.. Bones: There is abnormal bony alignment, with multiple compression fractures present. There is a mil d superior endplate impaction fracture and T12, with only slight height reduction. Vertebral plana se jatinder compression fractures are present at L1 and L2, with moderately severe to severe vertebral heigh t reduction. The L3 vertebral body is free of significant height reduction by trauma. There is modera tely severe L4 superior compression fracture, previously present. There is a mild superior endplate L 5 compression fracture, also previously present. No acute vertebral body compression fractures. No suspicious lytic or blastic bony lesions. Central spinal caliber is of normal overall caliber. No pars defects. Soft tissues: No retroperitoneal masses or hematomas. Visualized aorta is normal in caliber. The c ontrast enhanced nature of this study allows improved visualization of the portion of the abdomen and pelvis and lower chest included on this study. Note is made of bilateral small pleural effusions, si mple in character and measuring water in density at each hemithorax. The anterior chest wall is not i ncluded in this study. More inferiorly in the epigastrium area extensive surgical clips are present w ith metal artifact. There is a suspected abscess within the midline of the epigastrium, best seen on series 4 image 40 this is located just below the hepatic margin and at the midline medial and posteri or to the expected position of the gastric lumen. The exact anatomy in this area is not fully defined but this finding is estimated to measure up to 4.4 cm and lies near the anterior peritoneal membrane of the upper abdomen. A control device resides within the fatty soft tissues superficial to the gluteus musculature on the right medially. A set of leads extends cephalad to the chest/abdomen junction, and the leads extend i nto the spinal canal seen on series 4 image 11. Edema within the fatty soft tissues and cutaneous mar gin is present in this area, from the control device cephalad, and there is an ovoid intracanicular s tructure within the right posterior margin of the spinal canal near the abdomen/chest junction, seen 1.3 cm in maximal dimension. IMPRESSION: There is a complex constellation of findings discussed above which include multiple compression fract ures including a pair of vertebra plana compression fractures at the upper lumbar spine at the thorac olumbar junction. Adjacent vertebral plana compression fractures seen also 02/24/2021. Extensive metal artifact from bot h a spinal electrode stimulator lead endplate, and epigastric surgical clips are present, degrading q uality of visualization in the area of current clinical concern. There is abnormal edema within the fatty soft tissues and subcutaneous tissues along the course of th e spinal stimulator electrode leads to the right of midline and extending into the spinal canal. A de finite abscess in this area is not seen. There is an unexplained 1.3 cm hyperdense focus within the spinal canal near the inferior margin of t he spinal stimulator lead plate, as discussed above. This could represent an enhancing mass, a high d ensity previously present mass, and even the spinal canal aneurysm. This structure was not previously identified on CT scanning 02/24/2021 increasing the likelihood that this represents either an aneurys m or enhancing mass. Within the epigastrium anteriorly there is a fluid collection that is unexplained, apparently separat e from the stomach, and measuring approximately 5.8 x 3.8 cm in maximal transverse and AP dimensions. This is located at the axial level of the mid kidneys, but ventral, near the anterior peritoneal mar gin, and clearly separate from the stomach. This lumbosacral spine CT scanning does not fully evaluat e that area and dedicated targeted abdomen/pelvic CT scanning without and with contrast likely is war ranted. Reviewed by: Andres Rolon MD on 03/27/2021 9:18 PM PDT Approved by: Andres Rolon MD on 03/27/2021 9:18 PM PDT Station ID: [id number]
[2021-03-27] MEDS ORDERED: SODIUM CHLORIDE 0.9% 1,000 ML IV STA (23:44)
[2021-03-28] MEDS ORDERED: cefTRIAXone 1 GM VIAL IVP STA (00:05)
[2021-03-28] MEDS ORDERED: SODIUM CHLORIDE 0.9% 1,000 ML IV STA (00:06)
[2021-03-28] MEDS ORDERED: VANCOMYCIN 1 GM VIAL ONE (00:09)
[2021-03-28 00:32] LABS: BASOPHILS % (AUTO) 0.2 %; EOSINOPHILS % (AUTO) 0.3 %; HCT - HEMATOCRIT 34.3 % (37.0-47.0); HGB - HEMOGLOBIN 10.3 g/dL (12.0-16.0); LYMPHOCYTES # (AUTO) 0.5 10^3/uL (1.5-3.5); LYMPHOCYTES % (AUTO) 5.8 %; MEAN CORPUSCULAR HEMOGLOBIN 27.9 pg (27.0-31.0); MEAN PLATELET VOLUME 8.9 fL (7.9-10.8); MONOCYTES # (AUTO) 0.4 10^3/uL (0.0-1.0); MONOCYTES % (AUTO) 3.9 %; NEUTROPHILS % (AUTO) 89.2 %; PLT - PLATELET COUNT 318 10^3/uL (130-450); RED BLOOD COUNT 3.69 10^6/uL (4.20-5.40); RED CELL DISTRIBUTION WIDTH 15.7 % (12.0-15.0); WHITE BLOOD COUNT 8.9 x10^3/uL (4.8-10.8)
[2021-03-28] MEDS ORDERED: VANCOMYCIN INJ 0.75 GM in SODIUM CHLORIDE 0.9% 250 ML IV SCH (01:00)
[2021-03-28] MEDS ORDERED: oxyCODONE 5 MG TABLET PO STA (05:33)
[2021-03-28 06:02] VITALS: BP 122/80
== END 2021-03-28 06:10 | disposition short-term general hospital (02) ==
LOC: EDUNIT# → ED 21:37
DX: R53.1 Weakness (principal); E86.0 Dehydration; Z74.01 Bed confinement status; M48.55XD Collapsed vertebra, not elsewhere classified, thoracolumbar region, subsequent encounter for fracture with routine healing; Z96.82 Presence of neurostimulator; L89.153 Pressure ulcer of sacral region, stage 3; R60.0 Localized edema; S81.802A Unspecified open wound, left lower leg, initial encounter; S81.801A Unspecified open wound, right lower leg, initial encounter; X58.XXXA Exposure to other specified factors, initial encounter; Z85.07 Personal history of malignant neoplasm of pancreas; F17.200 Nicotine dependence, unspecified, uncomplicated; Z20.822 Contact with and (suspected) exposure to COVID-19
CPT/HCPCS: 0202U; 36415; 72132; 80053; 81001; 83605; 83690; 85025; 85651; 96361; 96365; 96366; 96375; 99284; A9270; J2060; J3370; Q9967; 81003; 87086

== ENCOUNTER 2021-03-28 06:12 | Outpatient (CLI) | payer MEDICAID | END 2021-03-28 06:13 | disposition short-term general hospital (02) | LOC: EMS 06:12 | PROVIDERS: ATTEND Emergency Medicine | DX: L98.429 Non-pressure chronic ulcer of back with unspecified severity (principal); T85.79XA Infection and inflammatory reaction due to other internal prosthetic devices, implants and grafts, initial encounter; L08.89 Other specified local infections of the skin and subcutaneous tissue | CPT/HCPCS: A0425; A0428 ==